=== PATIENT | male | born 1950 | race Asian ===

== ENCOUNTER 2019-03-04 16:48 | Inpatient (IN) | payer MEDICAID, OTHER ==
[~2019-03-04] VITALS: Ht 172.7 cm; Wt 43.3 kg
[2019-03-04] MEDS ORDERED: CEFEPIME 2GM/50 ML (PMX) 50 ML IVPB STA (17:03)
[2019-03-04] MEDS ORDERED: SODIUM CHLORIDE 0.9% 1L BAG IV* STA (17:03)
[2019-03-04] MEDS ORDERED: IPRATROPIUM (NEB) 0.5 MG/2.5 ML AMP INH STA (17:15)
[2019-03-04] MEDS ORDERED: METHYLPREDNISOLONE 125 MG INJ IV STA (17:15)
[2019-03-04] MEDS ORDERED: ALBUTEROL 0.5% (NEB) 2.5 MG/0.5 ML AMP INH STA (17:15)
[2019-03-04] MEDS ORDERED: ACETAMINOPHEN 500 MG TAB PO STA (17:16)
[2019-03-04] MEDS ORDERED: VANCOMYCIN 1 GM (PMX) 250 ML IVPB ONE (17:30)
[2019-03-04] MEDS ORDERED: IBUPROFEN 600 MG TAB PO ONE (17:30)
[2019-03-04] MEDS ORDERED: ALBUTEROL INH (17:44)
[2019-03-04] MEDS ORDERED: DIGOXIN PO (17:45)
[2019-03-04] MEDS ORDERED: LISINOPRIL PO (17:45)
[2019-03-04] MEDS ORDERED: ASCORBIC ACID PO (17:46)
[2019-03-04] MEDS ORDERED: SOD CHLORIDE 0.9% 1,000 ML IV STA (19:05)
[2019-03-04] MEDS ORDERED: ONDANSETRON 4 MG INJ IV PRN (21:00)
[2019-03-04] MEDS ORDERED: NACL 0.9% 3 ML SYG IV SCH (21:00)
[2019-03-04] MEDS ORDERED: ALBUTEROL/IPRATROPIUM (NEB) 3 ML AMP HHN PRN (21:00)
[2019-03-04] MEDS ORDERED: ACETAMINOPHEN 325 MG TAB PO PRN (21:00)
--- NOTE | 2019-03-04 21:28 | HP ---
Date/Time of Note Date/Time of Note DATE: 03/04/19 TIME: 21:14 Assessment/Plan VTE Prophylaxis SCD applied (from Nsg): Yes Pharmacological prophylaxis: NA/contraindicated Pharm contraindication: low risk/ambulating Lines/Catheters IV Catheter Type (from Nrsg): Saline Lock Assessment/Plan Assessment/Plan 68 yo man history of COPD on oxygen presents in COPD exacerbation #Acute exacerbation of chronic COPD - On arrival in ED was on nonrebreather; after steroids now breathing comfortably on 4L NC. - Continue prednisone 60mg daily - Will treat likely pneumonia with zosyn. Avoid fluoroquinolones until TB has been ruled out. - Continue nebulizers prn - On 2-3L oxygen at home - Case management consult to find out home medications. #Cavitary lung lesion #Weight loss #Cachexia - Possible tuberculosis. - Will get CT chest - From history it sounds like he is already on treatment. If he was at board and care not on airborne isolation then he probably has had 3 negative AFBs. And he denies cough. - In AM, should call either Dr. Gramajo's office or [facility] TB control to verify. #Anuria - Patient reports anuria for 2 days. Recently had Paul that was D/Yoav. - Will check renal and bladder US DVT: SCDs GI: None Result Diagram: 03/04/19 17103/04/19 171 HPI/ROS Admit Date/Time Admit Date/Time 04 March 2019 Hx of Present Illness Mr. Dodson is a 68 yo man with history of COPD on home oxygen who presents to the ED from board and care in acute respiratory distress. He reports feeling progressive shortness of breath and wheezing starting yesterday. He believes it is related to a new medications he started but does not know what it is or how long he has been taking it. This evening called the ambulance; he was found at his board and care in severe respiratory distress saturating mid 50%. The patient reports 20 lbs weight loss over the past 3-4 months. Appetite is variable, on days he is very hungry he tries to drink lots of Ensure. He says he was diagnosed with a bacterial infection of the lung and was placed on antibi otics for 6-9 months. He started this regimen 2 months ago. He follows Dr. Sintia Gramajo at [facility]. Typically uses 2-3L oxygen at home. Finally, he reports having Paul for 2 months due to urinary obstruction but it was removed recently. Initially he was voiding well but for 2 days he reports no urine output despite drinking plenty of fluids. He denies dysuria or suprapubic pain. In the ED he was febrile to 101.1, P 79, in respiratory distress. Placed on nonrebreather. Labs notable for lactate 2.6, otherwise unremarkable. CXR shows chronic lung disease throughout and L upper cavitary lesion. ROS he denies fever, chills, night sweats, dizziness, vertigo, dysphagia, chest pain/pressure/palpitations, cough, abdominal pain, diarrhea, constipation, dysuria, hematuria, flank pain, melena PMH/Family/Social Past Medical History COPD on 2-3L home oxygen Medications Current Medications IV Flush (NS 3 ml) 3 ml PER PROTOCOL IV ; Start 03/04/19 at 21:00 Ondansetron HCl (Zofran Inj) 4 mg Q6H PRN IV NAUSEA/VOMITING; Start 03/04/19 at 21:00 Acetaminophen (Tylenol Tab) 650 mg Q6H PRN PO .PAIN 1-3 OR TEMP; Start 03/04/19 at 21:00 Prednisone (Prednisone) 60 mg DAILY PO ; Start 03/05/19 at 09:00 Albuterol/ Ipratropium (Duoneb) 3 ml Q3H RESP THERAPY PRN HHN SHORTNESS OF BREATH; Start 03/04/19 at 21:00 Coded Allergies: No Known Allergy (Unverified , 03/04/19) Past Surgical History Past Surgical Hx: no surgical history Social History Born in [facility], immigrated to [place] at age 31. 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 Now lives in [place] [facility]. Alcohol Use: none Smoking Status: Former smoker (Quit smoking 1 year ago) Drug Use: none Exam/Review of Systems Vital Signs Vitals Vital Signs Date Temp Pulse Resp B/P (MAP) Pulse Ox O2 O2 Flow FiO2 Time Delivery Rate 03/04/19 99.0 79 16 90/57 (68) 99 Nasal 20:10 Cannula 03/04/19 4.0 17:40 Exam Exam Gen: Cachectic man well appearing no acute distress Eyes: PERRL, no icterus HEENT: Moist mucous membranes, clear oropharynx Neck:Supple, no lymphadenopathy Card: Regular rate and rhythm, no murmurs Pulm: Clear to auscultation bilaterally, no wheezing Abd: Soft, nontender, nondistended, scaphoid. No hepatosplenomegaly. Ext: No cyanosis/clubbing/edema, good peripheral pulses. Skin: warm, dry, well perfused. MAXINE WOODARD MD Mar 04, 2019 21:24
--- NOTE | 2019-03-04 22:37 | ERD ---
ER Documentation Chief Complaint Chief Complaint sob worsen today HPI This is a 68-year-old male that [facility]. The patient is a known history of COPD. The patient indicates that he has had significant difficulty breathing which is significantly worsened over the past 24 hours. When EMS arrived they indicated the patient was severely hypoxic satting at roughly 60%. To place the patient on low flow supplemental oxygen. The patient was hypotensive. The patient denies any fever shaking or chills. He states he had a nonproductive cough. The patient denies any recent hospitalizations. The patient denies any chest pain. He denies any nausea vomiting or abdominal pain. ROS All systems reviewed and are negative except as per history of present illness. Medications Home Meds Reported Medications [Ascorbic Acid] No Conflict Check, 1 TAB PO 03/04/19 [Lisinopril] No Conflict Check, 1 TAB PO 03/04/19 [Digoxin] No Conflict Check, 1 TAB PO 03/04/19 [Albuterol] No Conflict Check, INH NEEDED 03/04/19 Allergies Allergies: Coded Allergies: No Known Allergy (Unverified , 03/04/19) PMhx/Soc History of Surgery: No Anesthesia Reaction: No Hx Neurological Disorder: No Hx Respiratory Disorders: No Hx Cardiac Disorders: Yes (htn, afib) Hx Psychiatric Problems: No Hx Miscellaneous Medical Probl: No Hx Alcohol Use: No Hx Substance Use: No Hx Tobacco Use: No Smoking Status: Former smoker (Quit smoking 1 year ago) Physical Exam Vitals Vital Signs Date Temp Pulse Resp B/P (MAP) Pulse Ox O2 O2 Flow FiO2 Time Delivery Rate 03/04/19 76 16 100/62 99 Nasal 22:11 (75) Cannula 03/04/19 99.0 79 16 90/57 (68) 99 Nasal 20:10 Cannula 03/04/19 101.1 79 16 82/54 (63) 100 Nasal 19:06 Cannula 03/04/19 85 18 98/73 (81) 100 18:07 03/04/19 97 19 94/59 (71) 100 17:45 03/04/19 88 20 96 Nasal 4.0 17:40 Cannula 03/04/19 101.1 17:36 03/04/19 101.1 17:36 03/04/19 Nasal 4 17:25 Cannula 03/04/19 101.7 94 26 86/57 (93) 95 16:50 Physical Exam Constitutional:Well-developed. Cachectic. Patient in severe respiratory distress. HEENT:Normocephalic. Atraumatic.Pupils were equal round reactive to light. Moist mucous membranes.No tonsillar exudates. Neck: No nuchal rigidity. No lymphadenopathy. No posterior cervical spine tenderness or step-offs. Respiratory: Patient using accessory muscles of respiration. Unable to speak more than 2 words at a time before becoming short of breath. Diminished breath sounds heard on the left upper and lower lung base. Slight wheeze on inspiration throughout the right hemithorax. Cardiovascular: Regular rate regular rhythm.No murmurs. No rubs were appreciated.S1, S2 normal. Distal pulses are palpable 2+ bilaterally. GI: Abdomen was soft. Nontender. Non Distended. No pulsatile abdominal masses or bruits. No rebound. No guarding. Bowel sounds were present and normal. Muscle skeletal: Muscle atrophy of the upper and lower extremities. Skin: No petechia, no purpura. No lesions on the palms or the soles of the feet. No maculopapular rash. NEURO: Patient was alert, awake, orientated x3.No facial droop. Gait not observed as patient was in severe respiratory distress. Result Diagram: 03/04/19 1712 03/04/19 1712 Results 24 hrs Laboratory Tests Test 03/04/19 17:12 03/04/19 17:15 03/04/19 19:30 03/04/19 21:50 White Blood Count 7.7 10^3/ul Red Blood Count 3.01 10^6/ul Hemoglobin 8.7 g/dl Hematocrit 27.6 % Mean Corpuscular 91.7 fl Volume Mean Corpuscular 28.9 pg Hemoglobin Mean Corpuscular 31.5 g/dl Hemoglobin Concent Red Cell Distribution 14.5 % Width Platelet Count 242 10^3/UL Mean Platelet Volume 9.1 fl Immature Granulocytes 0.500 % % Neutrophils % 80.7 % Lymphocytes % 11.4 % Monocytes % 7.1 % Eosinophils % 0.0 % Basophils % 0.3 % Nucleated Red Blood 0.0 /100WBC Cells % Immature Granulocytes 0.040 10^3/ul # Neutrophils # 6.2 10^3/ul Lymphocytes # 0.9 10^3/ul Monocytes # 0.5 10^3/ul Eosinophils # 0.0 10^3/ul Basophils # 0.0 10^3/ul Nucleated Red Blood 0.0 10^3/ul Cells # Prothrombin Time 23.3 Sec Prothrombin Time Ratio 1.8 INR International 2.06 Normalized Ratio Activated 50.7 Sec Partial Thromboplast Time Sodium Level 138 mmol/L Potassium Level 4.0 mmol/L Chloride Level 106 mmol/L Carbon Dioxide Level 25 mmol/L Anion Gap 7 Blood Urea Nitrogen 21 mg/dl Creatinine 0.45 mg/dl Est Glomerular Filtrat > 60 mL/min Rate mL/min Glucose Level 100 mg/dl Calcium Level 7.1 mg/dl Total Bilirubin 0.4 mg/dl Direct Bilirubin 0.00 mg/dl Indirect Bilirubin 0.4 mg/dl Aspartate Amino 27 IU/L Transf (AST/SGOT) Alanine 23 IU/L Aminotransferase (ALT/ SGPT) Alkaline Phosphatase 115 IU/L Troponin I < 0.012 ng/ml B-Type Natriuretic 1190 PG/ML Peptide Total Protein 5.8 g/dl Albumin 2.5 g/dl Globulin 3.30 g/dl Albumin/Globulin Ratio 0.75 Amylase Level 117 U/L Lipase 18 U/L POC Venous Lactate 2.6 mmol/L Lactic Acid Level 1.5 mmol/L 1.6 mmol/L Current Medications Medications Dose Sig/Edgar Start Time Status Last (Trade) Ordered Route PRN Stop Time Admin Dose Reason Admin Sodium 1,170 ml BOLUS OVER 2 03/04/19 DC 03/04/19 Chloride HOURS STAT 17:03 03/04/19 17:39 (NS) IV* 17:05 Cefepime HCl 50 ml @ ONCE STAT 03/04/19 DC 03/04/19 100 mls/hr IVPB 17:03 03/04/19 18:03 17:35 Vancomycin 250 ml @ ONCE ONCE 03/04/19 DC 03/04/19 HCl 125 mls/hr IVPB 17:30 03/04/19 18:38 19:29 Albuterol 10 mg ONCE STAT 03/04/19 DC 03/04/19 (Proventil INH 17:15 03/04/19 17:40 0.5% (Neb)) 17:16 Ipratropium 1 mg ONCE STAT 03/04/19 DC 03/04/19 Norco INH 17:15 03/04/19 17:40 (Atrovent 17:16 0.02% (Neb)) 125 mg ONCE STAT 03/04/19 DC 03/04/19 Methylprednis IV 17:15 03/04/19 17:36 olone Sodium 17:16 Succinate (Solu-Medrol) Ibuprofen 600 mg ONCE ONCE 03/04/19 DC 03/04/19 (Motrin) PO 17:30 03/04/19 17:36 17:31 1,000 mg ONCE STAT 03/04/19 DC 03/04/19 Acetaminophen PO 17:16 03/04/19 17:36 (Tylenol 17:17 Tab) Sodium 1,000 ml @ Q1H STAT 03/04/19 DC 03/04/19 Chloride 1,000 mls/hr IV 19:05 03/04/19 19:19 20:04 IV Flush 3 ml PER 03/04/19 (NS 3 ml) PROTOCOL IV 21:00 Ondansetron 4 mg Q6H PRN 03/04/19 HCl (Zofran IV 21:00 Inj) NAUSEA/VOMITI NG 650 mg Q6H PRN 03/04/19 Acetaminophen PO .PAIN 1-3 21:00 (Tylenol OR TEMP Tab) Prednisone 60 mg DAILY PO 03/05/19 (Prednisone) 09:00 Albuterol/ 3 ml Q3H RESP 03/04/19 Ipratropium THERAPY PRN 21:00 (Duoneb) HHN SHORTNESS OF BREATH Piperacillin 100 ml @ Q6 IVPB 03/05/19 Sod/ 200 mls/hr 00:00 Tazobactam Sod Procedures/MDM The patient presented to the emergency department with shortness of breath. My differential diagnosis included but was not limited to upper airway obstruction, CHF, pulmonary embolism, cardiac ischemia, pneumonia, pneumothorax, anemia, drug overdose, pulmonary edema, COPD or asthma. The patient was immediately placed on high flow supplemental oxygen through nonrebreather as when the patient arrived he was hypoxic at roughly 60%. A bedside chest radiograph was immediately obtained and reviewed by myself and there is no evidence of pneumothorax. 1 view chest radiograph on reviewed by myself the radiologist indicate the following: Marked architectural distortion of the bilateral lung apices with bullous changes and possible cavitation within the left upper lung. Sequelae of old infection is considered most likely. Coarse interstitial markings are seen t hroughout the remainder of the lungs. A follow-up CT chest without contrast may be obtained for further characterization given the lack of prior imaging. Thoracic aortic atherosclerosis. 12 Lead EKG tracing ordered and reviewed by myself showed: Normal sinus rhythm of 95 bpm and no arrhythmia. MD interval normal. QRS duration normal. There is RSR prime pattern in lead V1 V2 consistent with an incomplete right bundle branch block. No ST segment elevation No ST segment depression. No changes consistent with acute ischemia. When the patient initially arrived he was febrile and did meet Sirs criteria. Patient's infectious symptoms have not stabilized and the patient is at risk of rapid decompensation. The patient will be admitted for careful hydration, antibiotic therapy, and infectious source control. Severe Sepsis Assessment: Infectious Source: Unknown source End organ damage indicated by: Lactate > 2.0 mmol/L Hypotension( SBP < 90 or >40 mmHG drop or MAP < 65) Acute Resp Failure (sat < 92% w/o oxygen) Severe Sepsis Managment: Blood Cultures X 2 before broad spectrum antibiotics initiated within 3 hours of recognition. 30 ml/kg NS bolus Completed Initial Lactate: 2.6 Repeat Lactate 1.5 I considered further perfusion assessment with CVP measurement, SCVO2, bedside ultrasound volume assessment, passive leg raise, trial of further fluid bolus. And preceded with IV fluids. The patient's BNP was elevated 1190 however his clinical picture appeared to be more result of a COPD exacerbation. He had significant improvement after he received a continuous nebulizer treatment and IV steroids. He was now satting at 94% on 2 L nasal cannula. The patient was hypotensive but I did feel this was exacerbated by his severe cachexia and closer to his baseline. His blood pressure did improve with IV fluid resuscitation. The patient will be admitted in serious condition under the care of Dr. Pond. He will go to the telemetry service. CT scan of the patient's chest will be obtained. He did have a cavitation in his left lung that could be result of possible tuberculosis and will be followed up by the admitting physician. Critical Care: Time: 80 minutes Treatments/Evaluations: Close monitoring and treatment of unstable vital signs, cardiorespiratory, and neurologic status, while maintaining tight balance of fluid, respiratory, and cardiac interventions. Time does not include performing any of the above billable procedures. Departure Diagnosis: Primary Impression: COPD (chronic obstructive pulmonary disease) COPD type: emphysema Emphysema type: unspecified Qualified Codes: J43.9 - Emphysema, unspecified Additional Impression: Sepsis Sepsis type: sepsis due to unspecified organism Qualified Codes: A41.9 - Sepsis, unspecified organism Condition: Serious ALE FUENTES MD Mar 04, 2019 22:37
[2019-03-04 23:40] VITALS: Ht 172.7 cm; Wt 43.3 kg
[2019-03-05] VITALS (11 sets, daily range): BP systolic 82–125; BP diastolic 53–67; PULSE 47–63; RESP 15–18
[2019-03-05] MEDS: PIPER-TAZO 3.375 GM IV (PMX) 100 ML IVPB SCH ×5 (01:20→23:46)
[2019-03-05] MEDS: predniSONE 20 MG TAB PO SCH (10:10)
--- NOTE | 2019-03-05 15:40 | CONS ---
DATE OF ADMISSION: 03/04/2019 DATE OF CONSULTATION: TYPE OF CONSULTATION: Pulmonary. REASON FOR CONSULTATION: Shortness of breath, abnormal chest CT. Thank you, Dr. Marquis, for this consultation. 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 The patient is a poor historian, unable to give me further details. PAST MEDICAL HISTORY: As above. SYSTEMS REVIEW: A 12-point review of systems was negative other than that mentioned above. PHYSICAL EXAMINATION: GENERAL: Thin, chronically ill-appearing gentleman, appears comfortable at rest, in no acute distres s. VITAL SIGNS: Currently afebrile, pulse is 60, blood pressure 95/58, O2 saturation 90% on 2-liter zina al cannula. NECK: Supple. No JVD or lymphadenopathy. CARDIAC: S1, S2. No added sounds or murmurs. CHEST: Diminished air entry bilaterally. No rales or wheezes. LABORATORIES: White count 5.2, hemoglobin 10.2, platelets 267. BUN 27, creatinine 0.5. Lactic acid now 1.6. INR 1.71. DIAGNOSTIC DATA: CT chest shows cavitating disease, thick walled cavities with central mass, severe emphysematous changes. 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 I recommend: 1. 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 2. Continue supplemental O2 and bronchodilators. 3. Steroid taper. 4. DVT and GI prophylaxis. Dictated By: KHADAR LOPEZ MD SV/NTS Conf#: [id number] DID#: [id number] CC: ISRAEL MARQUIS MD; MAXINE WOODARD MD;*End*
--- NOTE | 2019-03-05 15:54 | PN ---
Date/Time of Note Date/Time of Note DATE: 03/05/19 TIME: 15:43 Assessment/Plan VTE Prophylaxis SCD applied (from Nsg): Yes Pharmacological prophylaxis: NA/contraindicated Pharm contraindication: low risk/ambulating Lines/Catheters IV Catheter Type (from Nrsg): Saline Lock Assessment/Plan Hospital Course 68-year-old male who presented to the emergency room from [facility] with respiratory distress and difficulty breathing over the last 24 hours and was found to be hypoxic. He was admitted and managed as follows: 1. Acute on chronic respiratory failure likely secondary to #2 2. Acute COPD exacerbation: Improved -Chest CT showing extensive emphysema as well as bronchiectasis -maintained on inhaled bronchodilators, abx , steroids 3. Bilateral large cavitary lesions, extensive in both lungs. -CT was reviewed with the strike operations officer, per pulmonary, these findings are likely chronic. Likely sequelae of prior tuberculosis infection, acute infection while unable to be ruled out is very unlikely. -Pulmonary does not recommended needle biopsy at this time, patient is very high risk for complete pulmonary collapse as he has very little lung left and what is left of his lungs is severely diseased with emphysema 4. Malnutrition/cachexia -dietary consult 5. Chronic hypochromic anemia: Stable 6. Mild hypotension: Improved, chronic? Stable 7. Asymptomatic bradycardia: Stable, monitor Plan: -Pulmonary recommends conservative management at this time and close outpatient follow-up with pulmonology. -No further intervention will be: TB rule out versus lung biopsy is advised at this time -Patient has a poor long-term prognosis, but the recommendation is to treat his COPD exacerbation and continue serial imaging over time for monitoring of the other findings. This is likely ongoing as findings are chronic. -Plan of care discussed with patient, patient is in agreement, continue patient care at this time will plan for possible discharge tomorrow -dietary consult, SW consult, case mgt consult . Result Diagram: 03/05/19 0643 03/05/19 0642 Results 24hrs Laboratory Tests Test 03/04/19 17:12 03/04/19 17:15 03/04/19 19:30 03/04/19 21:50 White Blood Count 7.7 Red Blood Count 3.01 L Hemoglobin 8.7 L Hematocrit 27.6 L Mean Corpuscular Volume 91.7 Mean Corpuscular 28.9 L Hemoglobin Mean Corpuscular 31.5 L Hemoglobin Concent Red Cell Distribution 14.5 Width Platelet Count 242 Mean Platelet Volume 9.1 Immature Granulocytes % 0.500 H Neutrophils % 80.7 H Lymphocytes % 11.4 L Monocytes % 7.1 Eosinophils % 0.0 Basophils % 0.3 Nucleated Red Blood 0.0 Cells % Immature Granulocytes # 0.040 H Neutrophils # 6.2 Lymphocytes # 0.9 Monocytes # 0.5 Eosinophils # 0.0 Basophils # 0.0 Nucleated Red Blood 0.0 Cells # Prothrombin Time 23.3 H Prothrombin Time Ratio 1.8 INR International 2.06 Normalized Ratio Activated 50.7 H Partial Thromboplast Time Sodium Level 138 Potassium Level 4.0 Chloride Level 106 Carbon Dioxide Level 25 Anion Gap 7 Blood Urea Nitrogen 21 H Creatinine 0.45 L Est Glomerular Filtrat > 60 Rate mL/min Glucose Level 100 Calcium Level 7.1 L Total Bilirubin 0.4 Direct Bilirubin 0.00 Indirect Bilirubin 0.4 Aspartate Amino 27 Transf (AST/SGOT) Alanine 23 Aminotransferase (ALT/SG PT) Alkaline Phosphatase 115 Troponin I < 0.012 B-Type Natriuretic 1190 H Peptide Total Protein 5.8 L Albumin 2.5 L Globulin 3.30 H Albumin/Globulin Ratio 0.75 Amylase Level 117 Lipase 18 L POC Venous Lactate 2.6 *H Lactic Acid Level 1.5 1.6 Test 03/05/19 06:42 03/05/19 06:43 03/05/19 11:11 Sodium Level 138 Potassium Level 4.3 Chloride Level 106 Carbon Dioxide Level 25 Anion Gap 7 Blood Urea Nitrogen 27 H Creatinine 0.50 L Est Glomerular Filtrat > 60 Rate mL/min Glucose Level 137 Calcium Level 8.3 L Phosphorus Level 4.7 Magnesium Level 1.8 Total Bilirubin 0.3 Direct Bilirubin 0.00 Indirect Bilirubin 0.3 Aspartate Amino 67 #H Transf (AST/SGOT) Alanine 12 L Aminotransferase (ALT/SG PT) Alkaline Phosphatase 129 H Total Protein 7.0 # Albumin 2.9 L Globulin 4.10 H Albumin/Globulin Ratio 0.70 Thyroid Stimulating 2.390 Hormone (TSH) White Blood Count 5.2 # Red Blood Count 3.56 L Hemoglobin 10.2 L Hematocrit 32.9 L Mean Corpuscular Volume 92.4 Mean Corpuscular 28.7 L Hemoglobin Mean Corpuscular 31.0 L Hemoglobin Concent Red Cell Distribution 14.6 H Width Platelet Count 267 Mean Platelet Volume 9.5 Immature Granulocytes % 0.600 H Neutrophils % 90.0 H Lymphocytes % 7.1 L Monocytes % 2.1 Eosinophils % 0.0 Basophils % 0.2 Nucleated Red Blood 0.0 Cells % Immature Granulocytes # 0.030 Neutrophils # 4.7 Lymphocytes # 0.4 L Monocytes # 0.1 L Eosinophils # 0.0 Basophils # 0.0 Nucleated Red Blood 0.0 Cells # Hemoglobin A1c 5.8 Prothrombin Time 15.0 #H Prothrombin Time Ratio 1.2 INR International 1.17 Normalized Ratio Subjective 24 Hr Interval Summary Free Text/Dictation no new complaints, feels much better from a pulmonary standpoint, states he has home O2 at 2L. No immediate family here, all relatives in [place] Exam/Review of Systems Exam Vitals Vital Signs Date Temp Pulse Resp B/P (MAP) Pulse Ox O2 O2 Flow FiO2 Time Delivery Rate 03/05/19 53 16 114/62 99 15:37 (79) 03/05/19 97.9 07:39 03/05/19 2.0 03:34 03/05/19 Nasal 01:15 Cannula Intake and Output 03/04/19 03/04/19 03/05/19 1515:00 23:00 07:00 IntakeIntake Total 520 ml OutputOutput Total 200 ml BalanceBalance 320 ml Constitutional: alert, oriented, frail, other (cachectic ) Psych: nl mood/affect Head: normocephalic, atraumatic Eyes: PERRL ENMT: mucosa pink and moist Neck: supple Respiratory: diminished breath sounds (+++); No crackles/rales, No intercostal retraction, No labored breathing, No wheezing Cardiovascular: regular rate and rhythm; No murmurs/extra sounds Gastrointestinal: soft, non-tender, bowel sounds Extremities: other (chronic msc wasting ); No edema Neurological: nl mental status, nl speech; No confused, No focal weakness Results Results 24hrs Laboratory Tests Test 03/04/19 17:12 03/04/19 17:15 03/04/19 19:30 03/04/19 21:50 White Blood Count 7.7 Red Blood Count 3.01 L Hemoglobin 8.7 L Hematocrit 27.6 L Mean Corpuscular Volume 91.7 Mean Corpuscular 28.9 L Hemoglobin Mean Corpuscular 31.5 L Hemoglobin Concent Red Cell Distribution 14.5 Width Platelet Count 242 Mean Platelet Volume 9.1 Immature Granulocytes % 0.500 H Neutrophils % 80.7 H Lymphocytes % 11.4 L Monocytes % 7.1 Eosinophils % 0.0 Basophils % 0.3 Nucleated Red Blood 0.0 Cells % Immature Granulocytes # 0.040 H Neutrophils # 6.2 Lymphocytes # 0.9 Monocytes # 0.5 Eosinophils # 0.0 Basophils # 0.0 Nucleated Red Blood 0.0 Cells # Prothrombin Time 23.3 H Prothrombin Time Ratio 1.8 INR International 2.06 Normalized Ratio Activated 50.7 H Partial Thromboplast Time Sodium Level 138 Potassium Level 4.0 Chloride Level 106 Carbon Dioxide Level 25 Anion Gap 7 Blood Urea Nitrogen 21 H Creatinine 0.45 L Est Glomerular Filtrat > 60 Rate mL/min Glucose Level 100 Calcium Level 7.1 L Total Bilirubin 0.4 Direct Bilirubin 0.00 Indirect Bilirubin 0.4 Aspartate Amino 27 Transf (AST/SGOT) Alanine 23 Aminotransferase (ALT/SG PT) Alkaline Phosphatase 115 Troponin I < 0.012 B-Type Natriuretic 1190 H Peptide Total Protein 5.8 L Albumin 2.5 L Globulin 3.30 H Albumin/Globulin Ratio 0.75 Amylase Level 117 Lipase 18 L POC Venous Lactate 2.6 *H Lactic Acid Level 1.5 1.6 Test 03/05/19 06:42 03/05/19 06:43 03/05/19 11:11 Sodium Level 138 Potassium Level 4.3 Chloride Level 106 Carbon Dioxide Level 25 Anion Gap 7 Blood Urea Nitrogen 27 H Creatinine 0.50 L Est Glomerular Filtrat > 60 Rate mL/min Glucose Level 137 Calcium Level 8.3 L Phosphorus Level 4.7 Magnesium Level 1.8 Total Bilirubin 0.3 Direct Bilirubin 0.00 Indirect Bilirubin 0.3 Aspartate Amino 67 #H Transf (AST/SGOT) Alanine 12 L Aminotransferase (ALT/SG PT) Alkaline Phosphatase 129 H Total Protein 7.0 # Albumin 2.9 L Globulin 4.10 H Albumin/Globulin Ratio 0.70 Thyroid Stimulating 2.390 Hormone (TSH) White Blood Count 5.2 # Red Blood Count 3.56 L Hemoglobin 10.2 L Hematocrit 32.9 L Mean Corpuscular Volume 92.4 Mean Corpuscular 28.7 L Hemoglobin Mean Corpuscular 31.0 L Hemoglobin Concent Red Cell Distribution 14.6 H Width Platelet Count 267 Mean Platelet Volume 9.5 Immature Granulocytes % 0.600 H Neutrophils % 90.0 H Lymphocytes % 7.1 L Monocytes % 2.1 Eosinophils % 0.0 Basophils % 0.2 Nucleated Red Blood 0.0 Cells % Immature Granulocytes # 0.030 Neutrophils # 4.7 Lymphocytes # 0.4 L Monocytes # 0.1 L Eosinophils # 0.0 Basophils # 0.0 Nucleated Red Blood 0.0 Cells # Hemoglobin A1c 5.8 Prothrombin Time 15.0 #H Prothrombin Time Ratio 1.2 INR International 1.17 Normalized Ratio Imaging Imaging PROCEDURE: CT Chest without contrast. CLINICAL INDICATION: Upper lobe cavitary lesion TECHNIQUE: CT scan of the chest without contrast was performed on a multidetector high-resolution CT scanner. Coronal and sagittal reformatted images were obtained from the axial source images. The total exam CTDI equals 3.1 mGy and the total exam DLP equals 123.2 mGy-cm. 1 or more of the following dose reduction techniques were utilized: - Automated exposure control - Adjustment of the mA and/or kV according to patient size - Use of iterative reconstruction technique DICOM images are available. COMPARISON: March 04, 2019 FINDINGS: The trachea is midline. Thyroid gland is unremarkable. No same axillary lymphadenopathy. Several mediastinal lymph nodes are noted. Difficult to assess for hilar lymphadenopathy without IV contrast. The unenhanced aorta demonstrates minimal atherosclerotic calcifications. Pulmonary trunk is normal size. Heart size is within limits. Severe bilateral emphysematous changes are noted throughout both lungs. Large cavitary mass is noted within the left upper lobe, with thickened rodgers and irregular nodular borders, measuring 8.7 cm. There is also a large right upper lobe cavitary mass measuring up to 8.2 cm with thickened rodgers and irregular borders. There is an additional cavitary lesion measuring 1.6 cm within the right upper lobe, with architectural distortion and with adjacent interstitial thickening. Right middle lobe cystic and traction bronchiectasis. Numerous pulmonary nodules are noted throughout both lungs predominately within the lung bases. Additional cavitary lesion is identified within the superior segment of the left lower lobe measuring up to 4.5 cm with irregular thickened borders. The visualized upper abdominal organs appears to be within normal limits. The visualized osseous structures demonstrates multilevel degenerative disease of the thoracic spine. Chronic compression deformity of T8, T9 and T12. IMPRESSION: 1. Large cavitary mass within the left upper lobe with thickened rodgers and irregular nodular borders measuring 8.7 cm and large right upper lobe cavitary mass measuring up to 8.2 cm. Additional 4.5 cm located within the superior segment of the left lower lobe measure up to 4.5 cm. Suspect sequela of underlying infection such as tuberculosis. Correlate with clinical findings and history. 2. Severe bilateral emphysematous changes and 1.6 cm cavitary lesion within right upper lobe with architectural distortion and adjacent interstitial thickening. There is right middle lobe cystic and traction bronchiectasis. Findings are likely sequela of scarring and pleural of prior infection such as tuberculosis. 3. Numerous pulmonary nodules scattered throughout both lungs, predominately within the lung bases. Findings are probably related to history of prior infection/TB. 4. Underlying malignancy is not excluded. 5. 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 RPTAT: AARR Physician Yared Date Time Electronically viewed and signed by Physician Yared on 03/04/2019 22:43 JL/ CC: MAXINE WOODARD MD [id number] PROCEDURE: Retroperitoneal US. CLINICAL INDICATION: Hematuria TECHNIQUE: Multiple sonographic images of the kidneys and retroperitoneum were obtained. The images were reviewed on a PACS workstation. COMPARISON: No prior studies are available for comparison. FINDINGS: The kidneys are normal in size, contour, cortical thickness and cortical echogenicity. The right kidney measures 10.7 cm. The left kidney measures 10.8 cm. There are calcified stones in the upper pole of the right kidney, measuring up to 17 mm. There is no evidence for hydronephrosis. There is a moderate amount of layering debris within the urinary bladder. There are possible bladder stones. The prostate measures 2.7 x 2.2 cm. RPTAT: AA IMPRESSION: Right nephrolithiasis. No evidence of hydronephrosis. Moderate amount of layering debris and possible stones within the urinary bladder. .Dominick Rain MD, MD Date Time Electronically viewed and signed by .Dominick Rain MD, MD on 03/05/2019 08:02 .S/ CC: MAXINE WOODARD MD [phone] Medications Medication Current Medications IV Flush (NS 3 ml) 3 ml PER PROTOCOL IV ; Start 03/04/19 at 21:00 Ondansetron HCl (Zofran Inj) 4 mg Q6H PRN IV NAUSEA/VOMITING; Start 03/04/19 at 21:00 Acetaminophen (Tylenol Tab) 650 mg Q6H PRN PO .PAIN 1-3 OR TEMP; Start 03/04/19 at 21:00 Prednisone (Prednisone) 60 mg DAILY PO Last administered on 03/05/19at 10:10; Admin Dose 60 MG; Start 03/05/19 at 09:00 Albuterol/ Ipratropium (Duoneb) 3 ml Q3H RESP THERAPY PRN HHN SHORTNESS OF BREATH; Start 03/04/19 at 21:00 Piperacillin Sod/ Tazobactam Sod 100 ml @ 200 mls/hr Q6 IVPB Last administered on 03/05/19at 12:57; Admin Dose 200 MLS/HR; Start 03/05/19 at 00:00 ISRAEL MARQUIS Mar 05, 2019 15:54
--- NOTE | 2019-03-05 17:25 | RADRPT ---
Echocardiogram Report Patient Name: SCOTT HERRERAPatient ID: [id number] : 1950 (68y 8m)Study Date: 03/05/2019 1:48:58 PM Gender: MAccession #: [id number] Tech: Matt Root [facility] Location: [address] Ref.Physician: ISRAEL MARQUIS Height(Cm): BSA: Weight(Kg): Quality: AdequateOrder Physician: ISRAEL MARQUIS Account #: Procedures: Echocardiographic Report: Transthoracic echocardiogram with complete 2D, M-Mode, and doppler examination. Indications: R/o Congestive Heart Failure. Measurements: 2D/M Mode Doppler Measurement Value Normal Range Measurement Value Normal Range LVIDd 2D 3.7 [ 4.2 - 5.8 ] cm AV Peak Luis Manuel 0.7 [ 100.0 - 170.0 ] cm/sec LVIDs 2D 2.7 [ 2.5 - 4.0 ] cm AV Peak PG 2.0 [ 2.0 - 9.0 ] mmHg LVPWd 2D 1.0 [ 0.6 - 1.0 ] cm LVOT Peak Luis Manuel 0.6 [ 70.0 - 110.0 ] cm/sec IVSd 2D 1.0 [ 0.6 - 1.0 ] cm LVOT Peak PG 1.0 [ 2.0 - 6.0 ] mmHg AoR Diam 2D 3.2 [ 2.6 - 3.4 ] cm MV E Peak Luis Manuel 0.5 [ 60.0 - 130.0 ] cm/sec EDV 2D 58.1 [ 62.0 - 150.0 ] ml MV A Peak Luis Manuel 0.7 [ 100.0 - 120.0 ] cm/sec ESV 2D 26.5 [ 21.0 - 61.0 ] ml MV E/A 0.6 [ 0.8 - 1.5 ] ratio EF 2D 54.4 [ 52.0 - 72.0 ] percent MV Decel Time 218 [ 104 - 258 ] msec LA Dimen 2D 2.5 [ 3.0 - 4.0 ] cm Lat E` Luis Manuel 0.1 [ 10.0 - 15.0 ] cm/sec Lateral E/E` 5.8 [ 1.0 - 2.0 ] ratio MV E/A 0.6 [ 0.8 - 1.5 ] ratio TR Peak Luis Manuel 2.8 [ 100.0 - 280.0 ] cm/sec TR Peak PG 32.0 mmHg RVSP 42.0 [ 10.0 - 36.0 ] mmHg Findings: Left Ventricle: Normal left ventricular systolic function. Normal left ventricular cavity size. Normal left ventricular wall thickness. Ejection fraction is visually estimated at 60 %. Tissue Doppler/Mitral Doppler indices are consistent with impaired relaxation (Stage I diastolic dysfunction). Right Ventricle: Normal right ventricular size. Normal right ventricular systolic function. Left Atrium: The left atrium is normal in size. Right Atrium: Chiari network visualized in right atrium (normal variant). Mitral Valve: Mild mitral leaflet calcification. Mild mitral annular calcification. Aortic Valve: No significant aortic stenosis or insufficiency. Aortic cusps appear mildly calcified. Tricuspid Valve: Normal appearance of the tricuspid valve. The estimated Peak RVSP is 43 mmHg. There is mild tricuspid regurgitation. Pericardium: Normal pericardium with no significant pericardial effusion. Left pleural effusion seen. Aorta: Normal aortic root. IVC: Normal size and normal respiratory collapse consistent with normal right atrial pressure. Conclusions: Normal left ventricular systolic function. Normal left ventricular cavity size. Normal left ventricular wall thickness. Ejection fraction is visually estimated at 60 %. Tissue Doppler/Mitral Doppler indices are consistent with impaired relaxation (Stage I diastolic dysfunction). Mild mitral leaflet calcification. Mild mitral annular calcification. No significant aortic stenosis or insufficiency. Aortic cusps appear mildly calcified. Normal appearance of the tricuspid valve. The estimated Peak RVSP is 43 mmHg. There is mild tricuspid regurgitation. Electronically Signed By: Hussein Plata 2019-03-05 17:24:57 PDT
[2019-03-06] VITALS (11 sets, daily range): BP systolic 101–138; BP diastolic 62–73; PULSE 44–90; RESP 18–20
[2019-03-06] MEDS ORDERED: MAGNESIUM HYDROXIDE 30ML CUP PO PRN (03:00)
[2019-03-06] MEDS: PIPER-TAZO 3.375 GM IV (PMX) 100 ML IVPB SCH ×4 (05:43→23:57)
[2019-03-06] MEDS: predniSONE 20 MG TAB PO SCH (08:31)
--- NOTE | 2019-03-06 12:47 | CONS ---
Consult Date/Type/Reason Admit Date/Time Mar 04, 2019 at 20:59 Initial Consult Date Type of Consult Pulmonary Date/Time of Note DATE: 03/06/19 TIME: 12:45 Subjective Patient comfortable no respiratory distress. Objective Vital Signs Date Temp Pulse Resp B/P (MAP) Pulse Ox O2 O2 Flow FiO2 Time Delivery Rate 03/06/19 90 12:44 03/06/19 97.5 20 101/64 98 Nasal 11:23 (76) Cannula 03/06/19 2.0 07:28 Intake and Output 03/05/19 03/05/19 03/06/19 1515:00 23:00 07:00 IntakeIntake Total 900 ml 650 ml OutputOutput Total 425 ml 500 ml BalanceBalance 475 ml 150 ml Exam GENERAL: Thin cachectic gentleman VITAL SIGNS: per chart NECK: Supple. No JVD or lymphadenopathy. CARDIAC EXAM: S1, S2. No added sounds or murmurs. CHEST: clear bilaterally, No added sounds, rales or wheezes ABDOMEN: Soft, nontender. No guarding or rebound. EXTREMITIES: No cyanosis, clubbing or edema. NEUROLOGIC: Generalized weakness. No focal deficits. Results/Medications Result Diagram: 03/06/19 0638 03/06/19 0638 Results 24 hrs Laboratory Tests Test 03/05/19 23:20 03/06/19 06:38 Urine Color YELLOW Urine Clarity SLIGHTLY CLOUDY A Urine pH 5.0 Urine Specific Lares 1.024 Urine Ketones NEGATIVE Urine Nitrite NEGATIVE Urine Bilirubin NEGATIVE Urine Urobilinogen NEGATIVE Urine Leukocyte Esterase 1+ H Urine Microscopic RBC 84 H Urine Microscopic WBC 20 H Urine Hemoglobin 3+ H Urine Glucose NEGATIVE Urine Total Protein NEGATIVE White Blood Count 10.4 # Red Blood Count 3.42 L Hemoglobin 10.1 L Hematocrit 31.7 L Mean Corpuscular Volume 92.7 Mean Corpuscular Hemoglobin 29.5 Mean Corpuscular Hemoglobin Concent 31.9 L Red Cell Distribution Width 14.4 Platelet Count 311 Mean Platelet Volume 9.4 Immature Granulocytes % 0.600 H Neutrophils % 85.4 H Lymphocytes % 5.1 L Monocytes % 8.8 Eosinophils % 0.0 Basophils % 0.1 Nucleated Red Blood Cells % 0.0 Immature Granulocytes # 0.060 H Neutrophils # 8.8 H Lymphocytes # 0.5 L Monocytes # 0.9 Eosinophils # 0.0 Basophils # 0.0 Nucleated Red Blood Cells # 0.0 Sodium Level 143 Potassium Level 4.0 Chloride Level 104 Carbon Dioxide Level 33 H Anion Gap 6 Blood Urea Nitrogen 26 H Creatinine 0.50 L Est Glomerular Filtrat Rate mL/min > 60 Glucose Level 114 Calcium Level 8.5 Phosphorus Level 2.7 # Magnesium Level 1.9 Iron Level 101 Total Iron Binding Capacity 227 L Percent Iron Saturation 44 Medications Current Medications IV Flush (NS 3 ml) 3 ml PER PROTOCOL IV ; Start 03/04/19 at 21:00 Ondansetron HCl (Zofran Inj) 4 mg Q6H PRN IV NAUSEA/VOMITING Last administered on 03/06/19at 02:44; Admin Dose 4 MG; Start 03/04/19 at 21:00 Acetaminophen (Tylenol Tab) 650 mg Q6H PRN PO .PAIN 1-3 OR TEMP; Start 03/04/19 at 21:00 Prednisone (Prednisone) 60 mg DAILY PO Last administered on 03/06/19at 08:31; Admin Dose 60 MG; Start 03/05/19 at 09:00 Albuterol/ Ipratropium (Duoneb) 3 ml Q3H RESP THERAPY PRN HHN SHORTNESS OF BREATH Last administered on 03/06/19at 05:38; Admin Dose 3 ML; Start 03/04/19 at 21:00 Piperacillin Sod/ Tazobactam Sod 100 ml @ 200 mls/hr Q6 IVPB Last administered on 03/06/19at 12:35; Admin Dose 200 MLS/HR; Start 03/05/19 at 00:00 Magnesium Hydroxide (Milk Of Mag) 30 ml Q6 PRN PO GASTROINTESTINAL UPSET Last administered on 03/06/19at 03:00; Admin Dose 30 ML; Start 03/06/19 at 03:00 Assessment/Plan Hospital Course (Demo Recall) IMPRESSION AND PLAN: Severe cavitating lung disease, 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 Probable component of COPD exacerbation with community-acquired pneumonia Plan 1. Continue antibiotics and steroid taper 2. Pulmonary toilet 3. DC planning okay from pulmonary standpoint 4. Okay to discuss goals of care and palliative care. KHADAR LOPEZ MD, [facility] Mar 06, 2019 12:47
--- NOTE | 2019-03-06 14:22 | PN ---
Date/Time of Note Date/Time of Note DATE: 03/06/19 TIME: 14:18 Assessment/Plan VTE Prophylaxis Risk score (from Ns)>0 risk: 3 SCD applied (from Ns): Yes Pharmacological prophylaxis: NA/contraindicated Pharm contraindication: low risk/ambulating Lines/Catheters IV C[facility]from [facility] Saline Lock Assessment/Plan Hospital Course S: no new issues, continues to feel well, has not ambulated yet O : Constitutional: alert, oriented, frail, other (cachectic ) Psych: nl mood/affect Head: normocephalic, atraumatic Eyes: PERRL ENMT: mucosa pink and moist Neck: supple Respiratory: diminished breath sounds (+++); No crackles/rales, No intercostal retraction, No labored breathing, No wheezing Cardiovascular: regular rate and rhythm; No murmurs/extra sounds Gastrointestinal: soft, non-tender, bowel sounds Extremities: other (chronic msc wasting ); No edema Neurological: nl mental status, nl speech; No confused, No focal weakness assessment and plan: 68-year-old male who presented to the emergency room from [facility] with respiratory distress and difficulty breathing over the last 24 hours and was found to be hypoxic. He was admitted and managed as follows: 1. Acute on chronic respiratory failure likely secondary to #2 -improved, back to baseline O2 requirements 2. Acute COPD exacerbation: Improved -Chest CT showing extensive emphysema as well as bronchiectasis -maintained on inhaled bronchodilators, abx , steroids 3. Bilateral large cavitary lesions, extensive in both lungs. -CT was reviewed with the can tender, per pulmonary, these findings are likely chronic. Likely sequelae of prior tuberculosis infection, acute infection while unable to be ruled out is very unlikely. -Pulmonary does not recommended needle biopsy at this time, patient is very high risk for complete pulmonary collapse as he has very little lung left and what is left of his lungs is severely diseased with emphysema 4. Malnutrition/cachexia -dietary consult, on boost TID 5. Chronic hypochromic anemia: Stable 6. Mild hypotension: Improved, chronic? Stable 7. Asymptomatic bradycardia: improved Plan: -Pulmonary recommends conservative management at this time and close outpatient follow-up with pulmonology. -No further intervention i.e TB rule out versus lung biopsy is advised at this time -Patient has a poor long-term prognosis, but the recommendation is to treat his COPD exacerbation and continue serial imaging over time for monitoring of the other findings. This is likely ongoing as findings are chronic. -patient is ready for discharge, but will need medications and confirmation of his residennce. Case mgt and SW working on this -down grade to [facility] for now, PT charley . Result Diagram: 03/06/19 0638 03/06/19 0638 Results 24hrs Laboratory Tests Test 03/05/19 23:20 03/06/19 06:38 Urine Color YELLOW Urine Clarity SLIGHTLY CLOUDY A Urine pH 5.0 Urine Specific [place] 1.024 Urine Ketones NEGATIVE Urine Nitrite NEGATIVE Urine Bilirubin NEGATIVE Urine Urobilinogen NEGATIVE Urine Leukocyte Esterase 1+ H Urine Microscopic RBC 84 H Urine Microscopic WBC 20 H Urine Hemoglobin 3+ H Urine Glucose NEGATIVE Urine Total Protein NEGATIVE White Blood Count 10.4 # Red Blood Count 3.42 L Hemoglobin 10.1 L Hematocrit 31.7 L Mean Corpuscular Volume 92.7 Mean Corpuscular Hemoglobin 29.5 Mean Corpuscular Hemoglobin Concent 31.9 L Red Cell Distribution Width 14.4 Platelet Count 311 Mean Platelet Volume 9.4 Immature Granulocytes % 0.600 H Neutrophils % 85.4 H Lymphocytes % 5.1 L Monocytes % 8.8 Eosinophils % 0.0 Basophils % 0.1 Nucleated Red Blood Cells % 0.0 Immature Granulocytes # 0.060 H Neutrophils # 8.8 H Lymphocytes # 0.5 L Monocytes # 0.9 Eosinophils # 0.0 Basophils # 0.0 Nucleated Red Blood Cells # 0.0 Sodium Level 143 Potassium Level 4.0 Chloride Level 104 Carbon Dioxide Level 33 H Anion Gap 6 Blood Urea Nitrogen 26 H Creatinine 0.50 L Est Glomerular Filtrat Rate mL/min > 60 Glucose Level 114 Calcium Level 8.5 Phosphorus Level 2.7 # Magnesium Level 1.9 Iron Level 101 Total Iron Binding Capacity 227 L Percent Iron Saturation 44 Exam/Review of Systems Exam Vitals Vital Signs Date Temp Pulse Resp B/P (MAP) Pulse Ox O2 O2 Flow FiO2 Time Delivery Rate 03/06/19 90 12:44 03/06/19 97.5 20 101/64 98 Nasal 11:23 (76) Cannula 03/06/19 2.0 07:28 Intake and Output 03/05/19 03/05/19 03/06/19 1515:00 23:00 07:00 IntakeIntake Total 900 ml 650 ml OutputOutput Total 425 ml 500 ml BalanceBalance 475 ml 150 ml Results Results 24hrs Laboratory Tests Test 03/05/19 23:20 03/06/19 06:38 Urine Color YELLOW Urine Clarity SLIGHTLY CLOUDY A Urine pH 5.0 Urine Specific [place] 1.024 Urine Ketones NEGATIVE Urine Nitrite NEGATIVE Urine Bilirubin NEGATIVE Urine Urobilinogen NEGATIVE Urine Leukocyte Esterase 1+ H Urine Microscopic RBC 84 H Urine Microscopic WBC 20 H Urine Hemoglobin 3+ H Urine Glucose NEGATIVE Urine Total Protein NEGATIVE White Blood Count 10.4 # Red Blood Count 3.42 L Hemoglobin 10.1 L Hematocrit 31.7 L Mean Corpuscular Volume 92.7 Mean Corpuscular Hemoglobin 29.5 Mean Corpuscular Hemoglobin Concent 31.9 L Red Cell Distribution Width 14.4 Platelet Count 311 Mean Platelet Volume 9.4 Immature Granulocytes % 0.600 H Neutrophils % 85.4 H Lymphocytes % 5.1 L Monocytes % 8.8 Eosinophils % 0.0 Basophils % 0.1 Nucleated Red Blood Cells % 0.0 Immature Granulocytes # 0.060 H Neutrophils # 8.8 H Lymphocytes # 0.5 L Monocytes # 0.9 Eosinophils # 0.0 Basophils # 0.0 Nucleated Red Blood Cells # 0.0 Sodium Level 143 Potassium Level 4.0 Chloride Level 104 Carbon Dioxide Level 33 H Anion Gap 6 Blood Urea Nitrogen 26 H Creatinine 0.50 L Est Glomerular Filtrat Rate mL/min > 60 Glucose Level 114 Calcium Level 8.5 Phosphorus Level 2.7 # Magnesium Level 1.9 Iron Level 101 Total Iron Binding Capacity 227 L Percent Iron Saturation 44 Medications Medication Current Medications IV Flush (NS 3 ml) 3 ml PER PROTOCOL IV ; Start 03/04/19 at 21:00 Ondansetron HCl (Zofran Inj) 4 mg Q6H PRN IV NAUSEA/VOMITING Last administered on 03/06/19at 02:44; Admin Dose 4 MG; Start 03/04/19 at 21:00 Acetaminophen (Tylenol Tab) 650 mg Q6H PRN PO .PAIN 1-3 OR TEMP; Start 03/04/19 at 21:00 Prednisone (Prednisone) 60 mg DAILY PO Last administered on 03/06/19at 08:31; Admin Dose 60 MG; Start 03/05/19 at 09:00 Albuterol/ Ipratropium (Duoneb) 3 ml Q3H RESP THERAPY PRN HHN SHORTNESS OF BREATH Last administered on 03/06/19 05:38; Admin Dose 3 ML; Start 03/04/19 at 21:00 Piperacillin Sod/ Tazobactam Sod 100 ml @ 200 mls/hr Q6 IVPB Last administered on 03/06/19 12:35; Admin Dose 200 MLS/HR; Start 03/05/19 at 00:00 Magnesium Hydroxide (Milk Of Mag) 30 ml Q6 PRN PO GASTROINTESTINAL UPSET Last administered on 03/06/19at 03:00; Admin Dose 30 ML; Start 03/06/19 at 03:00 ISRAEL MARQUIS Mar 06, 2019 14:22
[2019-03-06] MEDS: MULTIVITAMINS/MINERALS TAB PO SCH (16:22)
[2019-03-07 01:11] VITALS: BP 129/73; PULSE 60; RESP 18
[2019-03-07] MEDS: PIPER-TAZO 3.375 GM IV (PMX) 100 ML IVPB SCH ×4 (05:38→23:10)
[2019-03-07 07:26] VITALS: BP 111/66; PULSE 60; RESP 16
[2019-03-07] MEDS: MULTIVITAMINS/MINERALS TAB PO SCH (08:36)
[2019-03-07] MEDS ORDERED: predniSONE 50 MG TAB PO ONE (09:00)
--- NOTE | 2019-03-07 10:32 | CONS ---
Consult Date/Type/Reason Admit Date/Time Mar 04, 2019 at 20:59 Initial Consult Date Type of Consult Pulmonary Date/Time of Note DATE: 03/07/19 TIME: 10:31 Subjective Comfortable at rest no acute distress. Objective Vital Signs Date Temp Pulse Resp B/P (MAP) Pulse Ox O2 O2 Flow FiO2 Time Delivery Rate 03/07/19 2.0 08:52 03/07/19 97.7 60 16 111/66 100 Nasal 07:26 (81) Cannula Intake and Output 03/06/19 03/06/19 03/07/19 1515:00 23:00 07:00 IntakeIntake Total 1080 ml 200 ml OutputOutput Total 400 ml 500 ml BalanceBalance 680 ml -300 ml Exam GENERAL: Thin cachectic gentleman VITAL SIGNS: per chart NECK: Supple. No JVD or lymphadenopathy. CARDIAC EXAM: S1, S2. No added sounds or murmurs. CHEST: clear bilaterally, No added sounds, rales or wheezes ABDOMEN: Soft, nontender. No guarding or rebound. EXTREMITIES: No cyanosis, clubbing or edema. NEUROLOGIC: Generalized weakness. No focal deficits. Results/Medications Result Diagram: 03/07/19 0525 03/07/19 0525 Results 24 hrs Laboratory Tests Test 03/07/19 05:25 White Blood Count 11.1 H Red Blood Count 3.66 L Hemoglobin 10.8 L Hematocrit 34.4 L Mean Corpuscular Volume 94.0 Mean Corpuscular Hemoglobin 29.5 Mean Corpuscular Hemoglobin Concent 31.4 L Red Cell Distribution Width 14.5 Platelet Count 304 Mean Platelet Volume 9.4 Immature Granulocytes % 0.600 H Neutrophils % 87.0 H Lymphocytes % 5.9 L Monocytes % 6.5 Eosinophils % 0.0 Basophils % 0.0 Nucleated Red Blood Cells % 0.0 Immature Granulocytes # 0.070 H Neutrophils # 9.6 H Lymphocytes # 0.7 L Monocytes # 0.7 Eosinophils # 0.0 Basophils # 0.0 Nucleated Red Blood Cells # 0.0 Sodium Level 142 Potassium Level 4.6 Chloride Level 101 Carbon Dioxide Level 37 H Anion Gap 4 L Blood Urea Nitrogen 17 # Creatinine 0.44 L Est Glomerular Filtrat Rate mL/min > 60 Glucose Level 88 Calcium Level 8.8 Total Bilirubin 0.3 Direct Bilirubin 0.00 Indirect Bilirubin 0.3 Aspartate Amino Transf (AST/SGOT) 31 # Alanine Aminotransferase (ALT/SGPT) 25 Alkaline Phosphatase 118 Total Protein 6.4 Albumin 2.7 L Medications Current Medications IV Flush (NS 3 ml) 3 ml PER PROTOCOL IV ; Start 03/04/19 at 21:00 Ondansetron HCl (Zofran Inj) 4 mg Q6H PRN IV NAUSEA/VOMITING Last administered on 03/06/19at 02:44; Admin Dose 4 MG; Start 03/04/19 at 21:00 Acetaminophen (Tylenol Tab) 650 mg Q6H PRN PO .PAIN 1-3 OR TEMP Last ad ministered on 03/07/19 03:21; Admin Dose 650 MG; Start 03/04/19 at 21:00 Albuterol/ Ipratropium (Duoneb) 3 ml Q3H RESP THERAPY PRN HHN SHORTNESS OF BREATH Last administered on 03/06/19 05:38; Admin Dose 3 ML; Start 03/04/19 at 21:00 Piperacillin Sod/ Tazobactam Sod 100 ml @ 200 mls/hr Q6 IVPB Last administered on 03/07/19at 05:38; Admin Dose 200 MLS/HR; Start 03/05/19 at 00:00 Magnesium Hydroxide (Milk Of Mag) 30 ml Q6 PRN PO GASTROINTESTINAL UPSET Last administered on 03/06/19at 03:00; Admin Dose 30 ML; Start 03/06/19 at 03:00 Multivitamins/ Minerals (Theragran-M) 1 tab DAILY PO Last administered on 03/07/19 08:36; Admin Dose 1 TAB; Start 03/06/19 at 14:30 Prednisone (Prednisone) 40 mg ONCE ONCE PO ; Start 03/08/19 at 09:00; Stop 03/08/19 at 09:01 Prednisone (Prednisone) 30 mg ONCE ONCE PO ; Start 03/09/19 at 09:00; Stop 03/09/19 at 09:01 Prednisone (Prednisone) 20 mg ONCE ONCE PO ; Start 03/10/19 at 09:00; Stop 03/10/19 at 09:01 Prednisone (Prednisone) 10 mg ONCE ONCE PO ; Start 03/11/19 at 09:00; Stop 03/11/19 at 09:01 Assessment/Plan Hospital Course (Demo Recall) IMPRESSION AND PLAN: Severe cavitating lung disease, 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 Probable component of COPD exacerbation with community-acquired pneumonia Plan 1. Continue antibiotics and steroid taper 2. Pulmonary toilet 3. DC planning okay from pulmonary standpoint shelter facility under palliative care may be more appropriate. KHADAR LOPEZ MD, [facility] Mar 07, 2019 10:32
[2019-03-07 14:19] VITALS: BP 132/78; PULSE 96; RESP 17
[2019-03-07 20:00] VITALS: BP 122/81; PULSE 77; RESP 18
--- NOTE | 2019-03-07 21:46 | PN ---
Date/Time of Note Date/Time of Note DATE: 03/07/19 TIME: 21:41 Assessment/Plan VTE Prophylaxis Risk score (from Nsg)>0 risk: 4 SCD applied (from Nsg): Yes Pharmacological prophylaxis: NA/contraindicated Pharm contraindication: low risk/ambulating Lines/Catheters IV Catheter Type (from Nrsg): Saline Lock Assessment/Plan Hospital Course S: no new issues, reviewed with pulm and SW O : Constitutional: alert, oriented, frail, other (cachectic ) Psych: nl mood/affect Head: normocephalic, atraumatic Eyes: PERRL ENMT: mucosa pink and moist Neck: supple Respiratory: diminished breath sounds (+++); No crackles/rales, No intercostal retraction, No labored breathing, No wheezing Cardiovascular: regular rate and rhythm; No murmurs/extra sounds Gastrointestinal: soft, non-tender, bowel sounds Extremities: other (chronic msc wasting ); No edema Neurological: nl mental status, nl speech; No confused, No focal weakness assessment and plan: 68-year-old male who presented to the emergency room from [facility] with respiratory distress and difficulty breathing over the last 24 hours and was found to be hypoxic. He was admitted and managed as follows: 1. Acute on chronic respiratory failure likely secondary to #2 -improved, back to baseline O2 requirements 2. Acute COPD exacerbation: Improved -Chest CT showing extensive emphysema as well as bronchiectasis -maintained on inhaled bronchodilators, abx , steroids 3. Bilateral large cavitary lesions, extensive in both lungs. -CT was reviewed with the research technologist, per pulmonary, these findings are likely chronic. Likely sequelae of prior tuberculosis infection, acute infection while unable to be ruled out is very unlikely. -Pulmonary does not recommended needle biopsy at this time, patient is very high risk for complete pulmonary collapse as he has very little lung left and what is left of his lungs is severely diseased with emphysema 4. Malnutrition/cachexia -dietary consult, on boost TID 5. Chronic hypochromic anemia: Stable 6. Mild hypotension: Improved, chronic? Stable 7. Asymptomatic bradycardia: improved Plan: -Pulmonary recommends conservative management at this time and close outpatient follow-up with pulmunology --No further intervention i.e TB rule out versus lung biopsy is advised at this time -Patient has a poor long-term prognosis , but the recommendation is to treat his COPD exacerbation and continue serial imaging over time for monitoring of the other findings. This is likely ongoing as findings are chronic. -extensive communication with the patient revealed patient may be a good candidate for hopsice care based on endstage pulmonary disease as patient doesn't want .any aggressive care and us tired of going in and out of the hospital. -patient wants to be DNR / DNI -SW present at bedside for discussion, continue current care and review again with patient tomorrow to ensure if this is indeed what he wants and if it will be possible . Result Diagram: 03/07/1952403/07/19524 Results 24hrs Laboratory Tests Test 03/07/19 05:25 White Blood Count 11.1 H Red Blood Count 3.66 L Hemoglobin 10.8 L Hematocrit 34.4 L Mean Corpuscular Volume 94.0 Mean Corpuscular Hemoglobin 29.5 Mean Corpuscular Hemoglobin Concent 31.4 L Red Cell Distribution Width 14.5 Platelet Count 304 Mean Platelet Volume 9.4 Immature Granulocytes % 0.600 H Neutrophils % 87.0 H Lymphocytes % 5.9 L Monocytes % 6.5 Eosinophils % 0.0 Basophils % 0.0 Nucleated Red Blood Cells % 0.0 Immature Granulocytes # 0.070 H Neutrophils # 9.6 H Lymphocytes # 0.7 L Monocytes # 0.7 Eosinophils # 0.0 Basophils # 0.0 Nucleated Red Blood Cells # 0.0 Sodium Level 142 Potassium Level 4.6 Chloride Level 101 Carbon Dioxide Level 37 H Anion Gap 4 L Blood Urea Nitrogen 17 # Creatinine 0.44 L Est Glomerular Filtrat Rate mL/min > 60 Glucose Level 88 Calcium Level 8.8 Total Bilirubin 0.3 Direct Bilirubin 0.00 Indirect Bilirubin 0.3 Aspartate Amino Transf (AST/SGOT) 31 # Alanine Aminotransferase (ALT/SGPT) 25 Alkaline Phosphatase 118 Total Protein 6.4 Albumin 2.7 L Exam/Review of Systems Exam Vitals Vital Signs Date Temp Pulse Resp B/P (MAP) Pulse Ox O2 O2 Flow FiO2 Time Delivery Rate 03/07/19 98.0 77 18 122/81 98 Nasal 20:00 (95) Cannula 03/07/19 2.0 08:52 Intake and Output 03/06/19 03/06/19 03/07/19 1515:00 23:00 07:00 IntakeIntake Total 1080 ml 200 ml OutputOutput Total 400 ml 500 ml BalanceBalance 680 ml -300 ml Results Results 24hrs Laboratory Tests Test 03/07/19 05:25 White Blood Count 11.1 H Red Blood Count 3.66 L Hemoglobin 10.8 L Hematocrit 34.4 L Mean Corpuscular Volume 94.0 Mean Corpuscular Hemoglobin 29.5 Mean Corpuscular Hemoglobin Concent 31.4 L Red Cell Distribution Width 14.5 Platelet Count 304 Mean Platelet Volume 9.4 Immature Granulocytes % 0.600 H Neutrophils % 87.0 H Lymphocytes % 5.9 L Monocytes % 6.5 Eosinophils % 0.0 Basophils % 0.0 Nucleated Red Blood Cells % 0.0 Immature Granulocytes # 0.070 H Neutrophils # 9.6 H Lymphocytes # 0.7 L Monocytes # 0.7 Eosinophils # 0.0 Basophils # 0.0 Nucleated Red Blood Cells # 0.0 Sodium Level 142 Potassium Level 4.6 Chloride Level 101 Carbon Dioxide Level 37 H Anion Gap 4 L Blood Urea Nitrogen 17 # Creatinine 0.44 L Est Glomerular Filtrat Rate mL/min > 60 Glucose Level 88 Calcium Level 8.8 Total Bilirubin 0.3 Direct Bilirubin 0.00 Indirect Bilirubin 0.3 Aspartate Amino Transf (AST/SGOT) 31 # Alanine Aminotransferase (ALT/SGPT) 25 Alkaline Phosphatase 118 Total Protein 6.4 Albumin 2.7 L Medications Medication Current Medications IV Flush (NS 3 ml) 3 ml PER PROTOCOL IV ; Start 03/04/19 at 21:00 Ondansetron HCl (Zofran Inj) 4 mg Q6H PRN IV NAUSEA/VOMITING Last administered on 03/06/19at 02:44; Admin Dose 4 MG; Start 03/04/19 at 21:00 Acetaminophen (Tylenol Tab) 650 mg Q6H PRN PO .PAIN 1-3 OR TEMP Last administered on 03/07/19 03:21; Admin Dose 650 MG; Start 03/04/19 at 21:00 Albuterol/ Ipratropium (Duoneb) 3 ml Q3H RESP THERAPY PRN HHN SHORTNESS OF BREATH Last administered on 03/06/19 05:38; Admin Dose 3 ML; Start 03/04/19 at 21:00 Piperacillin Sod/ Tazobactam Sod 100 ml @ 200 mls/hr Q6 IVPB Last administered on 03/07/19 18:07; Admin Dose 200 MLS/HR; Start 03/05/19 at 00:00 Magnesium Hydroxide (Milk Of Mag) 30 ml Q6 PRN PO GASTROINTESTINAL UPSET Last administered on 03/06/19 03:00; Admin Dose 30 ML; Start 03/06/19 at 03:00 Multivitamins/ Minerals (Theragran-M) 1 tab DAILY PO Last administered on 03/07/19 08:36; Admin Dose 1 TAB; Start 03/06/19 at 14:30 Prednisone (Prednisone) 40 mg ONCE ONCE PO ; Start 03/08/19 at 09:00; Stop 03/08/19 at 09:01 Prednisone (Prednisone) 30 mg ONCE ONCE PO ; Start 03/09/19 at 09:00; Stop 03/09/19 at 09:01 Prednisone (Prednisone) 20 mg ONCE ONCE PO ; Start 03/10/19 at 09:00; Stop 03/10/19 at 09:01 Prednisone (Prednisone) 10 mg ONCE ONCE PO ; Start 03/11/19 at 09:00; Stop 03/11/19 at 09:01 ISRAEL MARQUIS Mar 07, 2019 21:46
[2019-03-08 02:00] VITALS: BP 124/89; PULSE 78; RESP 19
[2019-03-08] MEDS: PIPER-TAZO 3.375 GM IV (PMX) 100 ML IVPB SCH ×3 (05:59→18:28)
[2019-03-08] MEDS ORDERED: predniSONE 20 MG TAB PO ONE (09:00)
[2019-03-08 09:13] VITALS: BP 85/51; PULSE 60; RESP 20
[2019-03-08] MEDS: MULTIVITAMINS/MINERALS TAB PO SCH (09:15)
--- NOTE | 2019-03-08 13:22 | CONS ---
Assessment/Plan Assessment/Plan Assessment/Plan (Daily) Assessment and recommendations; 1. 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 Patient however clinically is improving on current treatment regimen. 2. Underlying severe COPD as well. 3. Chronic appearing malnutrition. Continue current supportive care. Patient responding well to current treatment regimen. Consultation Date/Type/Reason Admit Date/Time Mar 04, 2019 at 20:59 Initial Consult Date Type of Consult Pulmonary Patient condition is stable. Remains awake and alert. Complains of very minimal cough. Denies any shortness of breath at rest. General exam; elderly male, awake and alert. Having lunch on bed. Currently in no distress. Reason for Consultation H EENT exam; supple neck, no JVD. No lymphadenopathy. Midline trachea. No thyromegaly. Patient is edentulous. No neck masses. Chest exam; diminished breath sounds throughout. S1-S2 audible, no murmurs. Regular rhythm. Abdomen exam; soft, nontender. Scaphoid. No organomegaly. Bowel sounds audible. Extremity exam; no peripheral edema clubbing. SLEEVE SEPARATOR exam; no focal deficit. Date/Time of Note DATE: 03/08/19 TIME: 13:20 Exam/Review of Systems Exam Vitals Vital Signs Date Temp Pulse Resp B/P (MAP) Pulse Ox O2 O2 Flow FiO2 Time Delivery Rate 03/08/19 Nasal 2.0 10:44 Cannula 03/08/19 97.0 60 20 85/51 (62) 96 09:13 Intake and Output 03/07/19 03/07/19 03/08/19 1515:00 23:00 07:00 IntakeIntake Total 560 ml 220 ml 100 ml OutputOutput Total 990 ml 475 ml 400 ml BalanceBalance -430 ml -255 ml -300 ml Results Result Diagram: 03/08/19 0431 03/08/19 0431 Results 24hrs Laboratory Tests Test 03/08/19 04:31 White Blood Count 9.3 Red Blood Count 3.74 L Hemoglobin 10.8 L Hematocrit 34.4 L Mean Corpuscular Volume 92.0 Mean Corpuscular Hemoglobin 28.9 L Mean Corpuscular Hemoglobin Concent 31.4 L Red Cell Distribution Width 14.4 Platelet Count 279 Mean Platelet Volume 9.5 Immature Granulocytes % 0.400 Neutrophils % 81.1 H Lymphocytes % 10.3 L Monocytes % 8.2 Eosinophils % 0.0 Basophils % 0.0 Nucleated Red Blood Cells % 0.0 Immature Granulocytes # 0.040 H Neutrophils # 7.6 H Lymphocytes # 1.0 Monocytes # 0.8 Eosinophils # 0.0 Basophils # 0.0 Nucleated Red Blood Cells # 0.0 Sodium Level 138 Potassium Level 4.2 Chloride Level 98 Carbon Dioxide Level 37 H Anion Gap 3 L Blood Urea Nitrogen 18 Creatinine 0.39 L Est Glomerular Filtrat Rate mL/min > 60 Glucose Level 83 Calcium Level 8.8 Medications Medication Current Medications IV Flush (NS 3 ml) 3 ml PER PROTOCOL IV ; Start 03/04/19 at 21:00 Ondansetron HCl (Zofran Inj) 4 mg Q6H PRN IV NAUSEA/VOMITING Last administered on 03/06/19at 02:44; Admin Dose 4 MG; Start 03/04/19 at 21:00 Acetaminophen (Tylenol Tab) 650 mg Q6H PRN PO .PAIN 1-3 OR TEMP Last administered on 03/07/19at 03:21; Admin Dose 650 MG; Start 03/04/19 at 21:00 Albuterol/ Ipratropium (Duoneb) 3 ml Q3H RESP THERAPY PRN HHN SHORTNESS OF BREATH Last administered on 03/06/19at 05:38; Admin Dose 3 ML; Start 03/04/19 at 21:00 Piperacillin Sod/ Tazobactam Sod 100 ml @ 200 mls/hr Q6 IVPB Last administered on 03/08/19at 12:44; Admin Dose 200 MLS/HR; Start 03/05/19 at 00:00 Magnesium Hydroxide (Milk Of Mag) 30 ml Q6 PRN PO GASTROINTESTINAL UPSET Last administered on 03/06/19 03:00; Admin Dose 30 ML; Start 03/06/19 at 03:00 Multivitamins/ Minerals (Theragran-M) 1 tab DAILY PO Last administered on 03/08/19 09:15; Admin Dose 1 TAB; Start 03/06/19 at 14:30 Prednisone (Prednisone) 30 mg ONCE ONCE PO ; Start 03/09/19 at 09:00; Stop 03/09/19 at 09:01 Prednisone (Prednisone) 20 mg ONCE ONCE PO ; Start 03/10/19 at 09:00; Stop 03/10/19 at 09:01 Prednisone (Prednisone) 10 mg ONCE ONCE PO ; Start 03/11/19 at 09:00; Stop 03/11/19 at 09:01 MELANIA REYES Mar 08, 2019 13:22
[2019-03-08 16:15] VITALS: BP 116/79; PULSE 75; RESP 18
[2019-03-08 20:00] VITALS: BP 111/73; PULSE 85; RESP 18
--- NOTE | 2019-03-08 22:51 | PN ---
Date/Time of Note Date/Time of Note DATE: 03/08/19 TIME: 22:49 Assessment/Plan VTE Prophylaxis Risk score (from Nsg)>0 risk: 2 SCD applied (from Nsg): Yes Pharmacological prophylaxis: heparin Lines/Catheters IV Catheter Type (from Nrsg): Peripheral IV Assessment/Plan Hospital Course S: no new issues, SW working on possible hospice O : Constitutional: alert, oriented, frail, other (cachectic ) Psych: nl mood/affect Head: normocephalic, atraumatic Eyes: PERRL ENMT: mucosa pink and moist Neck: supple Respiratory: diminished breath sounds (+++); No crackles/rales, No intercostal retraction, No labored breathing, No wheezing Cardiovascular: regular rate and rhythm; No murmurs/extra sounds Gastrointestinal: soft, non-tender, bowel sounds Extremities: other (chronic msc wasting ); No edema Neurological: nl mental status, nl speech; No confused, No focal weakness assessment and plan: 68-year-old male who presented to the emergency room [id number] with respiratory distress and difficulty breathing over the last 24 hours and was found to be hypoxic. He was admitted and managed as follows: 1. Acute on chronic respiratory failure likely secondary to #2 -improved, back to baseline O2 requirements 2. Acute COPD exacerbation: Improved -Chest CT showing extensive emphysema as well as bronchiectasis -maintained on inhaled bronchodilators, abx , steroids 3. Bilateral large cavitary lesions, extensive in both lungs. -CT was reviewed with the security systems integrator, per pulmonary, these findings are likely chronic. Likely sequelae of prior tuberculosis infection, acute infection while unable to be ruled out is very unlikely. -Pulmonary does not recommended needle biopsy at this time, patient is very high risk for complete pulmonary collapse as he has very little lung left and what is left of his lungs is severely diseased with emphysema 4. Malnutrition/cachexia -dietary consult, on boost TID 5. Chronic hypochromic anemia: Stable 6. Mild hypotension: Improved, chronic? Stable 7. Asymptomatic bradycardia: improved 8. DNR/ DNI Plan: -Pulmonary recommends conservative management at this time and palliative car e --No further intervention i.e TB rule out versus lung biopsy is advised at this time -patient open to hospice, SW to try to arrange, d/t his insurance status, it's challenging Result Diagram: 03/08/19 0431 03/08/19 0431 Results 24hrs Laboratory Tests Test 03/08/19 04:31 White Blood Count 9.3 Red Blood Count 3.74 L Hemoglobin 10.8 L Hematocrit 34.4 L Mean Corpuscular Volume 92.0 Mean Corpuscular Hemoglobin 28.9 L Mean Corpuscular Hemoglobin Concent 31.4 L Red Cell Distribution Width 14.4 Platelet Count 279 Mean Platelet Volume 9.5 Immature Granulocytes % 0.400 Neutrophils % 81.1 H Lymphocytes % 10.3 L Monocytes % 8.2 Eosinophils % 0.0 Basophils % 0.0 Nucleated Red Blood Cells % 0.0 Immature Granulocytes # 0.040 H Neutrophils # 7.6 H Lymphocytes # 1.0 Monocytes # 0.8 Eosinophils # 0.0 Basophils # 0.0 Nucleated Red Blood Cells # 0.0 Sodium Level 138 Potassium Level 4.2 Chloride Level 98 Carbon Dioxide Level 37 H Anion Gap 3 L Blood Urea Nitrogen 18 Creatinine 0.39 L Est Glomerular Filtrat Rate mL/min > 60 Glucose Level 83 Calcium Level 8.8 Exam/Review of Systems Exam Vitals Vital Signs Date Temp Pulse Resp B/P (MAP) Pulse Ox O2 O2 Flow FiO2 Time Delivery Rate 03/08/19 97.9 85 18 111/73 97 20:00 (86) 03/08/19 Nasal 2.0 10:44 Cannula Intake and Output 03/07/19 03/07/19 03/08/19 1515:00 23:00 07:00 IntakeIntake Total 560 ml 220 ml 100 ml OutputOutput Total 990 ml 475 ml 400 ml BalanceBalance -430 ml -255 ml -300 ml Results Results 24hrs Laboratory Tests Test 03/08/19 04:31 White Blood Count 9.3 Red Blood Count 3.74 L Hemoglobin 10.8 L Hematocrit 34.4 L Mean Corpuscular Volume 92.0 Mean Corpuscular Hemoglobin 28.9 L Mean Corpuscular Hemoglobin Concent 31.4 L Red Cell Distribution Width 14.4 Platelet Count 279 Mean Platelet Volume 9.5 Immature Granulocytes % 0.400 Neutrophils % 81.1 H Lymphocytes % 10.3 L Monocytes % 8.2 Eosinophils % 0.0 Basophils % 0.0 Nucleated Red Blood Cells % 0.0 Immature Granulocytes # 0.040 H Neutrophils # 7.6 H Lymphocytes # 1.0 Monocytes # 0.8 Eosinophils # 0.0 Basophils # 0.0 Nucleated Red Blood Cells # 0.0 Sodium Level 138 Potassium Level 4.2 Chloride Level 98 Carbon Dioxide Level 37 H Anion Gap 3 L Blood Urea Nitrogen 18 Creatinine 0.39 L Est Glomerular Filtrat Rate mL/min > 60 Glucose Level 83 Calcium Level 8.8 Medications Medication Current Medications IV Flush (NS 3 ml) 3 ml PER PROTOCOL IV ; Start 03/04/19 at 21:00 Ondansetron HCl (Zofran Inj) 4 mg Q6H PRN IV NAUSEA/VOMITING Last administered on 03/06/19 02:44; Admin Dose 4 MG; Start 03/04/19 at 21:00 Acetaminophen (Tylenol Tab) 650 mg Q6H PRN PO .PAIN 1-3 OR TEMP Last administered on 03/07/19 03:21; Admin Dose 650 MG; Start 03/04/19 at 21:00 Albuterol/ Ipratropium (Duoneb) 3 ml Q3H RESP THERAPY PRN HHN SHORTNESS OF BREATH Last administered on 03/06/19 05:38; Admin Dose 3 ML; Start 03/04/19 at 21:00 Piperacillin Sod/ Tazobactam Sod 100 ml @ 200 mls/hr Q6 IVPB Last administered on 03/08/19 18:28; Admin Dose 200 MLS/HR; Start 03/05/19 at 00:00 Magnesium Hydroxide (Milk Of Mag) 30 ml Q6 PRN PO GASTROINTESTINAL UPSET Last administered on 03/06/19 03:00; Admin Dose 30 ML; Start 03/06/19 at 03:00 Multivitamins/ Minerals (Theragran-M) 1 tab DAILY PO Last administered on 03/08/19 09:15; Admin Dose 1 TAB; Start 03/06/19 at 14:30 Prednisone (Prednisone) 30 mg ONCE ONCE PO ; Start 03/09/19 at 09:00; Stop 03/09/19 at 09:01 Prednisone (Prednisone) 20 mg ONCE ONCE PO ; Start 03/10/19 at 09:00; Stop 03/10/19 at 09:01 Prednisone (Prednisone) 10 mg ONCE ONCE PO ; Start 03/11/19 at 09:00; Stop 03/11/19 at 09:01 ISRAEL MARQUIS Mar 08, 2019 22:51
[2019-03-09] MEDS: PIPER-TAZO 3.375 GM IV (PMX) 100 ML IVPB SCH ×4 (00:07→17:26)
[2019-03-09 02:00] VITALS: BP 133/86; PULSE 69; RESP 18
[2019-03-09 07:24] VITALS: BP 121/88; PULSE 82; RESP 18
[2019-03-09] MEDS: MULTIVITAMINS/MINERALS TAB PO SCH (09:00)
[2019-03-09] MEDS ORDERED: predniSONE 10 MG TAB PO ONE (09:00)
[2019-03-09] MEDS: HEPARIN 5,000 UNIT/1 ML VIAL SC SCH ×2 (09:08→20:31)
--- NOTE | 2019-03-09 14:05 | PN ---
Date/Time of Note Date/Time of Note DATE: 03/09/19 TIME: 14:01 Assessment/Plan VTE Prophylaxis Risk score (from Nsg)>0 risk: 2 SCD applied (from Nsg): Yes Pharmacological prophylaxis: heparin Lines/Catheters IV Catheter Type (from Nrsg): Peripheral IV Assessment/Plan Hospital Course S: pee pee is hard to come out, just drips , SW working on possible hospice O : Constitutional: alert, oriented, frail, other (cachectic ) Psych: nl mood/affect Head: normocephalic, atraumatic Eyes: PERRL ENMT: mucosa pink and moist Neck: supple Respiratory: diminished breath sounds (+++); No crackles/rales, No intercostal retraction, No labored breathing, No wheezing Cardiovascular: regular rate and rhythm; No murmurs/extra sounds Gastrointestinal: soft, non-tender, bowel sounds Extremities: other (chronic msc wasting ); No edema Neurological: nl mental status, nl speech; No confused, No focal weakness assessment and plan: 68-year-old male who presented to the emergency room from [facility] with respiratory distress and difficulty breathing over the last 24 hours and was found to be hypoxic. He was admitted and managed as follows: 1. Acute on chronic respiratory failure likely secondary to #2 -improved, back to baseline O2 requirements 2. Acute COPD exacerbation: Improved -Chest CT showing extensive emphysema as well as bronchiectasis -maintained on inhaled bronchodilators, abx , steroids 3. Bilateral large cavitary lesions, extensive in both lungs. -CT was reviewed with the organization development consultant, per pulmonary, these findings are likely chronic. Likely sequelae of prior tuberculosis infection, acute infection while unable to be ruled out is very unlikely. -Pulmonary does not recommended needle biopsy at this time, patient is very high risk for complete pulmonary collapse as he has very little lung left and what is left of his lungs is severely diseased with emphysema 4. Malnutrition/cachexia -dietary consult, on boost TID 5. Chronic hypochromic anemia: Stable 6. Mild hypotension: Improved, chronic? Stable 7. Asymptomatic bradycardia: improved 8. DNR/ DNI 9. LUTs: check PVR, send urine cx, may need rich / urology, psa, prostatic USS Plan: -No TB workup indicated, findings are sequelae of prior TB infection -patient unable to go back to previous [facility] as location now doesn't exist -patient has consented to hospice, SW to try to arrange, d/t his insurance status, it's challenging Result Diagram: 03/08/1943003/08/19430 Exam/Review of Systems Exam Vitals Vital Signs Date Temp Pulse Resp B/P (MAP) Pulse Ox O2 O2 Flow FiO2 Time Delivery Rate 03/09/19 Nasal 2.0 09:00 Cannula 03/09/19 97.6 82 18 121/88 100 07:24 (99) Intake and Output 03/08/19 03/08/19 03/09/19 1515:00 23:00 07:00 IntakeIntake Total 360 ml 1260 ml 100 ml OutputOutput Total 500 ml 600 ml BalanceBalance -140 ml 660 ml 100 ml Medications Medication Current Medications IV Flush (NS 3 ml) 3 ml PER PROTOCOL IV ; Start 03/04/19 at 21:00 Ondansetron HCl (Zofran Inj) 4 mg Q6H PRN IV NAUSEA/VOMITING Last administered on 03/06/19at 02:44; Admin Dose 4 MG; Start 03/04/19 at 21:00 Acetaminophen (Tylenol Tab) 650 mg Q6H PRN PO .PAIN 1-3 OR TEMP Last administered on 03/07/19 03:21; Admin Dose 650 MG; Start 03/04/19 at 21:00 Albuterol/ Ipratropium (Duoneb) 3 ml Q3H RESP THERAPY PRN HHN SHORTNESS OF BREATH Last administered on 03/06/19at 05:38; Admin Dose 3 ML; Start 03/04/19 at 21:00 Piperacillin Sod/ Tazobactam Sod 100 ml @ 200 mls/hr Q6 IVPB Last administered on 03/09/19 12:06; Admin Dose 200 MLS/HR; Start 03/05/19 at 00:00 Magnesium Hydroxide (Milk Of Mag) 30 ml Q6 PRN PO GASTROINTESTINAL UPSET Last administered on 03/06/19 03:00; Admin Dose 30 ML; Start 03/06/19 at 03:00 Multivitamins/ Minerals (Theragran-M) 1 tab DAILY PO Last administered on 03/09/19 09:00; Admin Dose 1 TAB; Start 03/06/19 at 14:30 Prednisone (Prednisone) 20 mg ONCE ONCE PO ; Start 03/10/19 at 09:00; Stop 03/10/19 at 09:01 Prednisone (Prednisone) 10 mg ONCE ONCE PO ; Start 03/11/19 at 09:00; Stop at 09:01 Heparin Sodium (Porcine) (Heparin (5000 Units/1ml)) 5,000 unit BID SC Last administered on 03/09/19at 09:08; Admin Dose 5,000 UNIT; Start 03/09/19 at 09:00 ISRAEL MARQUIS Mar 09, 2019 14:04
[2019-03-09 15:29] VITALS: BP 81/63; PULSE 125; RESP 18
[2019-03-09 15:34] VITALS: PULSE 90
--- NOTE | 2019-03-09 16:21 | CONS ---
Consult Date/Type/Reason Admit Date/Time Mar 04, 2019 at 20:59 Initial Consult Date Type of Consult Pulmonary Date/Time of Note DATE: 03/09/19 TIME: 16:20 Subjective Patient remains stable no respiratory distress. Objective Vital Signs Date Temp Pulse Resp B/P (MAP) Pulse Ox O2 O2 Flow FiO2 Time Delivery Rate 03/09/19 90 99 15:34 03/09/19 97.6 18 81/63 (69) 15:29 03/09/19 Nasal 2.0 09:00 Cannula Intake and Output 03/08/19 03/08/19 03/09/19 1515:00 23:00 07:00 IntakeIntake Total 360 ml 1260 ml 100 ml OutputOutput Total 500 ml 600 ml BalanceBalance -140 ml 660 ml 100 ml Exam GENERAL: Thin elderly gentleman VITAL SIGNS: per chart NECK: Supple. No JVD or lymphadenopathy. CARDIAC EXAM: S1, S2. No added sounds or murmurs. CHEST: clear bilaterally, No added sounds, rales or wheezes ABDOMEN: Soft, nontender. No guarding or rebound. EXTREMITIES: No cyanosis, clubbing or edema. NEUROLOGIC: Generalized weakness. No focal deficits. Results/Medications Result Diagram: 03/08/1943003/08/19430 Medications Current Medications IV Flush (NS 3 ml) 3 ml PER PROTOCOL IV ; Start 03/04/19 at 21:00 Ondansetron HCl (Zofran Inj) 4 mg Q6H PRN IV NAUSEA/VOMITING Last administered on 03/06/19at 02:44; Admin Dose 4 MG; Start 03/04/19 at 21:00 Acetaminophen (Tylenol Tab) 650 mg Q6H PRN PO .PAIN 1-3 OR TEMP Last administered on 03/07/19 03:21; Admin Dose 650 MG; Start 03/04/19 at 21:00 Albuterol/ Ipratropium (Duoneb) 3 ml Q3H RESP THERAPY PRN HHN SHORTNESS OF BREATH Last administered on 03/06/19at 05:38; Admin Dose 3 ML; Start 03/04/19 at 21:00 Piperacillin Sod/ Tazobactam Sod 100 ml @ 200 mls/hr Q6 IVPB Last administered on 03/09/19at 12:06; Admin Dose 200 MLS/HR; Start 03/05/19 at 00:00 Magnesium Hydroxide (Milk Of Mag) 30 ml Q6 PRN PO GASTROINTESTINAL UPSET Last administered on 03/06/19at 03:00; Admin Dose 30 ML; Start 03/06/19 at 03:00 Multivitamins/ Minerals (Theragran-M) 1 tab DAILY PO Last administered on 03/09/19at 09:00; Admin Dose 1 TAB; Start 03/06/19 at 14:30 Prednisone (Prednisone) 20 mg ONCE ONCE PO ; Start 03/10/19 at 09:00; Stop 03/10/19 at 09:01 Prednisone (Prednisone) 10 mg ONCE ONCE PO ; Start 03/11/19 at 09:00; Stop 03/11/19 at 09:01 Heparin Sodium (Porcine) (Heparin (5000 Units/1ml)) 5,000 unit BID SC Last administered on 03/09/19at 09:08; Admin Dose 5,000 UNIT; Start 03/09/19 at 09:00 Tamsulosin HCl (Flomax) 0.4 mg HS PO ; Start 03/09/19 at 21:00 Assessment/Plan Hospital Course (Demo Recall) IMPRESSION AND PLAN: Severe cavitating lung disease, 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 Probable component of COPD exacerbation with community-acquired pneumonia Radiographic changes appear to be chronic in nature and are not consistent with an acute mycobacterial infection. Plan 1. Continue antibiotics and steroid taper 2. Pulmonary toilet 3. DC planning okay from pulmonary standpoint 4. No further work-up for active TB currently recommended. senior living facility under palliative care may be more appropriate. KHADAR LOPEZ MD, [facility] Mar 09, 2019 16:21
--- NOTE | 2019-03-09 19:20 | CONS ---
Assessment/Plan Assessment/Plan Hospital Course (Demo Recall) Mr. Dodson is a 68 yo man with history of COPD on home oxygen who presented to the ED from board and care in acute respiratory distress. He reports feeling progressive shortness of breath and wheezing. He reports 20 lbs weight loss over the past 3-4 months. Appetite is variable, on days he is very hungry he tries to drink lots of Ensure. He says he was diagnosed with a bacterial infection of the lung and was placed on antibiotics for 6-9 months. He started this regimen 2 months ago. He follows Dr. Sintia Gramajo at [facility]. Typically uses 2-3L oxygen at home. Also he reports having Paul for 2 months when he was at [facility] due to urinary obstruction but it was removed recently. Initially he was voiding well but for 2 days he reports no urine output despite drinking plenty of fluids. He states that he urinates small amount. He denies any history of gross hematuria. He underwent a renal ultrasound and that showed: Right nephrolithiasis. No evidence of hydronephrosis. Moderate amount of layering debris and possible stones within the urinary bladder. CT scan of the chest: 1. Large cavitary mass within the left upper lobe with thickened rodgers and irregular nodular borders measuring 8.7 cm and large right upper lobe cavitary mass measuring up to 8.2 cm. Additional 4.5 cm located within the superior segment of the left lower lobe measure up to 4.5 cm. Suspect sequela of underlying infection such as tuberculosis. Correlate with clinical findings and history. 2. Severe bilateral emphysematous changes and 1.6 cm cavitary lesion within right upper lobe with architectural distortion and adjacent interstitial thickening. There is right middle lobe cystic and traction bronchiectasis. Findings are likely sequela of scarring and pleural of prior infection such as tuberculosis. 3. Numerous pulmonary nodules scattered throughout both lungs, predominately within the lung bases. Findings are probably related to history of prior infection/TB. 4. Underlying malignancy is not excluded. 5. 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 Upon reviewing the ultrasound of the bladder he may well have a mass in the right side of the bladder and that could be a bladder tumor with possible calcification on it. He used to be a smoker and he has lesions in the lungs which also could be metastatic. Even though on the ultrasound it is reported as debris however I inserted a 16 [place] Paul catheter for him and the urine came out very clear. There was no sediment or pus or even blood. I will send urine for UA, culture and sensitivity and cytology. He may need to have a cystoscopy to check for bladder tumor. Consultation Date/Type/Reason Admit Date/Time Mar 04, 2019 at 20:59 Date of Consultation: Mar 09, 2019 Type of Consult Urology Reason for Consultation Possible bladder stones and debris inside the bladder on the CT scan Requesting Provider: ISRAEL MARQUIS Date/Time of Note DATE: 03/09/19 TIME: 19:03 Hx of Present Illness Mr. Dodson is a 68 yo man with history of COPD on home oxygen who presented to the ED from board and care in acute respiratory distress. He reports feeling progressive shortness of breath and wheezing. He reports 20 lbs weight loss over the past 3-4 months. Appetite is variable, on days he is very hungry he tries to drink lots of Ensure. He says he was diagnosed with a bacterial infection of the lung and was placed on antibiotics for 6-9 months. He started this regimen 2 months ago. He follows Dr. Sintia Gramajo at [facility]. Typically uses 2-3L oxygen at home. Also he reports having Paul for 2 months when he was at [facility] due to urinary obstruction but it was removed recently. Initially he was voiding well but for 2 days he reports no urine output despite drinking plenty of fluids. He states that he urinates small amount. He denies any history of gross hematuria. He underwent a renal ultrasound and that showed: Right nephrolithiasis. No evidence of hydronephrosis. Moderate amount of layering debris and possible stones within the urinary bladder. CT scan of the chest: 1. Large cavitary mass within the left upper lobe with thickened rodgers and irregular nodular borders measuring 8.7 cm and large right upper lobe cavitary mass measuring up to 8.2 cm. Additional 4.5 cm located within the superior segment of the left lower lobe measure up to 4.5 cm. Suspect sequela of underlying infection such as tuberculosis. Correlate with clinical findings and history. 2. Severe bilateral emphysematous changes and 1.6 cm cavitary lesion within right upper lobe with architectural distortion and adjacent interstitial thickening. There is right middle lobe cystic and traction bronchiectasis. Findings are likely sequela of scarring and pleural of prior infection such as tuberculosis. 3. Numerous pulmonary nodules scattered throughout both lungs, predominately w ithin the lung bases. Findings are probably related to history of prior infection/TB. 4. Underlying malignancy is not excluded. 5. 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 Constitutional: requiring O2, other (Very weak) Eyes: no complaints ENT: no complaints Respiratory: shortness of breath Cardiovascular: No chest pain Gastrointestinal: No nausea, No vomiting Genitourinary: No dysuria, No hematuria Musculoskeletal: no complaints Skin: no complaints Neurologic: no complaints Endocrine: no complaints Lymphatic: no complaints Psychological: no complaints Immunologic: no complaints Past Medical History Medical History: other (As per history of present illness, COPD) Home Meds Reported Medications [Ascorbic Acid] No Conflict Check, 1 TAB PO 03/04/19 [Lisinopril] No Conflict Check, 1 TAB PO 03/04/19 [Digoxin] No Conflict Check, 1 TAB PO 03/04/19 [Albuterol] No Conflict Check, INH NEEDED 03/04/19 Medications Current Medications IV Flush (NS 3 ml) 3 ml PER PROTOCOL IV ; Start 03/04/19 at 21:00 Ondansetron HCl (Zofran Inj) 4 mg Q6H PRN IV NAUSEA/VOMITING Last administered on 03/06/19at 02:44; Admin Dose 4 MG; Start 03/04/19 at 21:00 Acetaminophen (Tylenol Tab) 650 mg Q6H PRN PO .PAIN 1-3 OR TEMP Last administered on 03/07/19 03:21; Admin Dose 650 MG; Start 03/04/19 at 21:00 Albuterol/ Ipratropium (Duoneb) 3 ml Q3H RESP THERAPY PRN HHN SHORTNESS OF BREATH Last administered on 03/06/19 05:38; Admin Dose 3 ML; Start 03/04/19 at 21:00 Piperacillin Sod/ Tazobactam Sod 100 ml @ 200 mls/hr Q6 IVPB Last administered on 03/09/19 17:26; Admin Dose 200 MLS/HR; Start 03/05/19 at 00:00 Magnesium Hydroxide (Milk Of Mag) 30 ml Q6 PRN PO GASTROINTESTINAL UPSET Last administered on 6/4/19at 03:00; Admin Dose 30 ML; Start 03/06/19 at 03:00 Multivitamins/ Minerals (Theragran-M) 1 tab DAILY PO Last administered on 03/09/19at 09:00; Admin Dose 1 TAB; Start 03/06/19 at 14:30 Prednisone (Prednisone) 20 mg ONCE ONCE PO ; Start 03/10/19 at 09:00; Stop 03/10/19 at 09:01 Prednisone (Prednisone) 10 mg ONCE ONCE PO ; Start 03/11/19 at 09:00; Stop 03/11/19 at 09:01 Heparin Sodium (Porcine) (Heparin (5000 Units/1ml)) 5,000 unit BID SC Last administered on 03/09/19at 09:08; Admin Dose 5,000 UNIT; Start 03/09/19 at 09:00 Tamsulosin HCl (Flomax) 0.4 mg HS PO ; Start 03/09/19 at 21:00 Allergies: Coded Allergies: No Known Allergy (Unverified , 03/04/19) Past Surgical History Past Surgical Hx: no surgical history Social History Alcohol Use: none Smoking Status: Former smoker Drug Use: none Other Social History He has 1 son who lives in [place] Exam/Review of Systems Exam Vitals Vital Signs Date Temp Pulse Resp B/P (MAP) Pulse Ox O2 O2 Flow FiO2 Time Delivery Rate 03/09/19 90 99 15:34 03/09/19 97.6 18 81/63 (69) 15:29 03/09/19 Nasal 2.0 09:00 Cannula Intake and Output 03/08/19 03/08/19 03/09/19 1515:00 23:00 07:00 IntakeIntake Total 360 ml 1260 ml 100 ml OutputOutput Total 500 ml 600 ml BalanceBalance -140 ml 660 ml 100 ml Constitutional: alert, oriented Psych: no complaints Head: normocephalic Eyes: nl conjunctiva ENMT: nl external ears & nose Neck: supple, non-tender Respiratory: normal air movement Cardiovascular: No jugular venous distention (JVD) Gastrointestinal: soft; No surgical scars Genitourinary - Male: nl penis, nl scrotum, other (Rectal exam reveals soft prostate and it is not large) Musculoskeletal: nl extremities to inspection Extremities: No calf tenderness Skin: nl turgor, other (Very cachectic person) Results Result Diagram: 6/6/19 0431 03/08/19 0431 Results 24hrs Laboratory Tests Test 03/09/19 14:52 Prostate Specific Antigen 2.[address] scan of the chest: 1. Large cavitary mass within the left upper lobe with thickened rodgers and irregular nodular borders measuring 8.7 cm and large right upper lobe cavitary mass measuring up to 8.2 cm. Additional 4.5 cm located within the superior segment of the left lower lobe measure up to 4.5 cm. Suspect sequela of underlying infection such as tuberculosis. Correlate with clinical findings and history. 2. Severe bilateral emphysematous changes and 1.6 cm cavitary lesion within right upper lobe with architectural distortion and adjacent interstitial thickening. There is right middle lobe cystic and traction bronchiectasis. Findings are likely sequela of scarring and pleural of prior infection such as tuberculosis. 3. Numerous pulmonary nodules scattered throughout both lungs, predominately within the lung bases. Findings are probably related to history of prior infection/TB. 4. Underlying malignancy is not excluded. 5. 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 Renal and bladder ultrasound: Right nephrolithiasis. No evidence of hydronephrosis. Moderate amount of layering debris and possible stones within the urinary blad bri. Medications Medication Current Medications IV Flush (NS 3 ml) 3 ml PER PROTOCOL IV ; Start 03/04/19 at 21:00 Ondansetron HCl (Zofran Inj) 4 mg Q6H PRN IV NAUSEA/VOMITING Last administered on 03/06/19at 02:44; Admin Dose 4 MG; Start 03/04/19 at 21:00 Acetaminophen (Tylenol Tab) 650 mg Q6H PRN PO .PAIN 1-3 OR TEMP Last administered on 03/07/19 03:21; Admin Dose 650 MG; Start 03/04/19 at 21:00 Albuterol/ Ipratropium (Duoneb) 3 ml Q3H RESP THERAPY PRN HHN SHORTNESS OF BREATH Last administered on 03/06/19at 05:38; Admin Dose 3 ML; Start 03/04/19 at 21:00 Piperacillin Sod/ Tazobactam Sod 100 ml @ 200 mls/hr Q6 IVPB Last administered on 03/09/19at 17:26; Admin Dose 200 MLS/HR; Start 03/05/19 at 00:00 Magnesium Hydroxide (Milk Of Mag) 30 ml Q6 PRN PO GASTROINTESTINAL UPSET Last administered on 03/06/19at 03:00; Admin Dose 30 ML; Start 03/06/19 at 03:00 Multivitamins/ Minerals (Theragran-M) 1 tab DAILY PO Last administered on 03/09/19at 09:00; Admin Dose 1 TAB; Start 03/06/19 at 14:30 Prednisone (Prednisone) 20 mg ONCE ONCE PO ; Start 03/10/19 at 09:00; Stop 03/10/19 at 09:01 Prednisone (Prednisone) 10 mg ONCE ONCE PO ; Start 03/11/19 at 09:00; Stop 03/11/19 at 09:01 Heparin Sodium (Porcine) (Heparin (5000 Units/1ml)) 5,000 unit BID SC Last administered on 03/09/19at 09:08; Admin Dose 5,000 UNIT; Start 03/09/19 at 09:00 Tamsulosin HCl (Flomax) 0.4 mg HS PO ; Start 03/09/19 at 21:00 ANDREE COHEN MD Mar 09, 2019 19:13
[2019-03-09 20:00] VITALS: PULSE 89
[2019-03-09 20:10] VITALS: BP 110/84; PULSE 89; RESP 18
[2019-03-09] MEDS ORDERED: TAMSULOSIN (SR) 0.4 MG CAP PO SCH (21:00)
[2019-03-10] MEDS: PIPER-TAZO 3.375 GM IV (PMX) 100 ML IVPB SCH ×4 (00:19→18:05)
[2019-03-10 02:17] VITALS: BP 130/83; PULSE 88; RESP 18
[2019-03-10 07:45] VITALS: BP 107/76; PULSE 88; RESP 20
[2019-03-10] MEDS ORDERED: predniSONE 20 MG TAB PO ONE (09:00)
[2019-03-10] MEDS: MULTIVITAMINS/MINERALS TAB PO SCH (09:08)
[2019-03-10] MEDS: HEPARIN 5,000 UNIT/1 ML VIAL SC SCH ×2 (09:11→20:26)
--- NOTE | 2019-03-10 12:30 | PN ---
Date/Time of Note Date/Time of Note DATE: 03/10/19 TIME: 12:28 Assessment/Plan VTE Prophylaxis Risk score (from Ns)>0 risk: 2 SCD applied (from Ns): Yes Pharmacological prophylaxis: heparin Lines/Catheters IV Catheter Type (from Nrs): Peripheral IV Assessment/Plan Problems: (1) Bullous emphysema Status: Chronic Comment: Is on treatment for this with steroids and can add in the inhalers. Please note that he probably has some chronic infectious issues however pulmonary has in their notes indicated their desire about how aggressively to work this up. Placement into some type of facility under hospice care based on the overall picture is appropriate (2) Cavitary lesion of lung Status: Chronic Comment: These are bilateral and appear to be chronic in nature. Defer to pulmonary regarding management (3) Bladder calculi Status: Chronic Comment: Please note that there may actually also be a bladder tumor here, please see the notes from urology. We will try and do our best to assist (4) Grade I diastolic dysfunction Status: Chronic Comment: Noted. (5) Protein-calorie malnutrition, severe Status: Chronic Comment: Noted. Attempting to give him nutrition Result Diagram: 03/10/19 0554 03/10/19 0554 Results 24hrs Laboratory Tests Test 03/09/19 14:52 03/09/19 17:00 03/10/19 05:54 Prostate Specific Antigen 2.2 Urine Color YELLOW Urine Clarity SLIGHTLY CLOUDY A Urine pH 7.0 Urine Specific [place] 1.019 Urine Ketones NEGATIVE Urine Nitrite NEGATIVE Urine Bilirubin NEGATIVE Urine Urobilinogen NEGATIVE Urine Leukocyte Esterase NEGATIVE Urine Microscopic RBC 1 Urine Microscopic WBC 9 H Urine Calcium Oxalate Crystals FEW A Urine Hemoglobin NEGATIVE Urine Glucose NEGATIVE Urine Total Protein NEGATIVE White Blood Count 7.0 # Red Blood Count 3.39 L Hemoglobin 9.9 L Hematocrit 31.5 L Mean Corpuscular Volume 92.9 Mean Corpuscular Hemoglobin 29.2 Mean Corpuscular 31.4 L Hemoglobin Concent Red Cell Distribution Width 14.8 H Platelet Count 246 Mean Platelet Volume 9.2 Immature Granulocytes % 0.600 H Neutrophils % 75.5 Lymphocytes % 14.4 L Monocytes % 9.1 Eosinophils % 0.3 Basophils % 0.1 Nucleated Red Blood Cells % 0.0 Immature Granulocytes # 0.040 H Neutrophils # 5.3 Lymphocytes # 1.0 Monocytes # 0.6 Eosinophils # 0.0 Basophils # 0.0 Nucleated Red Blood Cells # 0.0 Sodium Level 141 Potassium Level 3.9 Chloride Level 102 Carbon Dioxide Level 38 H Anion Gap 1 L Blood Urea Nitrogen 20 Creatinine 0.52 L Est Glomerular Filtrat > 60 Rate mL/min Glucose Level 81 Calcium Level 8.8 Magnesium Level 2.1 Subjective 24 Hr Interval Summary Free Text/Dictation Pleasant man laying in bed. Reports he is doing well Constitutional: no complaints (Fevers chills or sweats) Respiratory: no complaints (He denies any breathing difficulties) Cardiovascular: no complaints Gastrointestinal: no complaints Genitourinary: other (Planes of inability to urinate) Exam/Review of Systems Exam Vitals Vital Signs Date Temp Pulse Resp B/P (MAP) Pulse Ox O2 O2 Flow FiO2 Time Delivery Rate 03/10/19 Nasal 2.0 07:48 Cannula 03/10/19 98.0 88 20 107/76 98 07:45 (86) Intake and Output 03/09/19 03/09/19 03/10/19 1515:00 23:00 07:00 IntakeIntake Total 500 ml 840 ml 400 ml OutputOutput Total 1 ml 700 ml BalanceBalance 500 ml 839 ml -300 ml Constitutional: alert, oriented, other (Underweight) Respiratory: diminished breath sounds Cardiovascular: regular rate and rhythm, nl pulses, other (MIs medially and caudally displaced) Results Results 24hrs Laboratory Tests Test 03/09/19 14:52 03/09/19 17:00 03/10/19 05:54 Prostate Specific Antigen 2.2 Urine Color YELLOW Urine Clarity SLIGHTLY CLOUDY A Urine pH 7.0 Urine Specific [place] 1.019 Urine Ketones NEGATIVE Urine Nitrite NEGATIVE Urine Bilirubin NEGATIVE Urine Urobilinogen NEGATIVE Urine Leukocyte Esterase NEGATIVE Urine Microscopic RBC 1 Urine Microscopic WBC 9 H Urine Calcium Oxalate Crystals FEW A Urine Hemoglobin NEGATIVE Urine Glucose NEGATIVE Urine Total Protein NEGATIVE White Blood Count 7.0 # Red Blood Count 3.39 L Hemoglobin 9.9 L Hematocrit 31.5 L Mean Corpuscular Volume 92.9 Mean Corpuscular Hemoglobin 29.2 Mean Corpuscular 31.4 L Hemoglobin Concent Red Cell Distribution Width 14.8 H Platelet Count 246 Mean Platelet Volume 9.2 Immature Granulocytes % 0.600 H Neutrophils % 75.5 Lymphocytes % 14.4 L Monocytes % 9.1 Eosinophils % 0.3 Basophils % 0.1 Nucleated Red Blood Cells % 0.0 Immature Granulocytes # 0.040 H Neutrophils # 5.3 Lymphocytes # 1.0 Monocytes # 0.6 Eosinophils # 0.0 Basophils # 0.0 Nucleated Red Blood Cells # 0.0 Sodium Level 141 Potassium Level 3.9 Chloride Level 102 Carbon Dioxide Level 38 H Anion Gap 1 L Blood Urea Nitrogen 20 Creatinine 0.52 L Est Glomerular Filtrat > 60 Rate mL/min Glucose Level 81 Calcium Level 8.8 Magnesium Level 2.1 Medications Medication Current Medications IV Flush (NS 3 ml) 3 ml PER PROTOCOL IV ; Start 03/04/19 at 21:00 Ondansetron HCl (Zofran Inj) 4 mg Q6H PRN IV NAUSEA/VOMITING Last administered on 03/06/19 02:44; Admin Dose 4 MG; Start 03/04/19 at 21:00 Acetaminophen (Tylenol Tab) 650 mg Q6H PRN PO .PAIN 1-3 OR TEMP Last administered on 03/07/19 03:21; Admin Dose 650 MG; Start 03/04/19 at 21:00 Albuterol/ Ipratropium (Duoneb) 3 ml Q3H RESP THERAPY PRN HHN SHORTNESS OF BREATH Last administered on 03/06/19 05:38; Admin Dose 3 ML; Start 03/04/19 at 21:00 Piperacillin Sod/ Tazobactam Sod 100 ml @ 200 mls/hr Q6 IVPB Last administered on 03/10/19 12:23; Admin Dose 200 MLS/HR; Start 03/05/19 at 00:00 Magnesium Hydroxide (Milk Of Mag) 30 ml Q6 PRN PO GASTROINTESTINAL UPSET Last administered on 03/06/19 03:00; Admin Dose 30 ML; Start 03/06/19 at 03:00 Multivitamins/ Minerals (Theragran-M) 1 tab DAILY PO Last administered on 03/10/19 09:08; Admin Dose 1 TAB; Start 03/06/19 at 14:30 Prednisone (Prednisone) 10 mg ONCE ONCE PO ; Start 03/11/19 at 09:00; Stop 03/11/19 at 09:01 Heparin Sodium (Porcine) (Heparin (5000 Units/1ml)) 5,000 unit BID SC Last administered on 03/10/19 09:11; Admin Dose 5,000 UNIT; Start 03/09/19 at 09:00 Tiotropium Junior (Spiriva) 1 inh DAILY INH ; Start 03/10/19 at 12:30; Status UNV Fluticasone/ Vilanterol (Breo Ellipta 100-25 Mcg Inh) 1 inh DAILY INH ; Start 03/10/19 at 12:30; Status UNV Tamsulosin HCl (Flomax) 0.4 mg BID PO ; Start 03/10/19 at 21:00; Status UNV LESLEY ARMENTA MD Mar 10, 2019 12:30
[2019-03-10] MEDS: FLUTICASONE/VILANTEROL 100-25 INH SCH (14:05)
[2019-03-10] MEDS: TIOTROPIUM 18 MCG CAPSULE INHA DEV INH SCH (14:05)
[2019-03-10 14:23] VITALS: BP 98/66; PULSE 64; RESP 20
--- NOTE | 2019-03-10 16:00 | CONS ---
Consult Date/Type/Reason Admit Date/Time Mar 04, 2019 at 20:59 Initial Consult Date 03/09/19 Type of Consultation: Urology Reason for Consultation Debris inside the bladder and bladder stones? Requesting Provider: ISRAEL MARQUIS Date/Time of Note DATE: 03/10/19 TIME: 15:57 Subjective Patient is comfortable. He states he had good night sleep Objective Vitals Vital Signs Date Temp Pulse Resp B/P (MAP) Pulse Ox O2 O2 Flow FiO2 Time Delivery Rate 03/10/19 97.9 64 20 98/66 (77) 97 14:23 03/10/19 Nasal 2.0 07:48 Cannula Intake and Output 03/09/19 03/09/19 03/10/19 1515:00 23:00 07:00 IntakeIntake Total 500 ml 840 ml 400 ml OutputOutput Total 1 ml 700 ml BalanceBalance 500 ml 839 ml -300 ml Exam Paul catheter is draining clear urine. Results/Medications Result Diagram: 03/10/19 0554 03/10/19 0554 Results 24 hrs Laboratory Tests Test 03/09/19 17:00 03/10/19 05:54 Urine Color YELLOW Urine Clarity SLIGHTLY CLOUDY A Urine pH 7.0 Urine Specific Whitney 1.019 Urine Ketones NEGATIVE Urine Nitrite NEGATIVE Urine Bilirubin NEGATIVE Urine Urobilinogen NEGATIVE Urine Leukocyte Esterase NEGATIVE Urine Microscopic RBC 1 Urine Microscopic WBC 9 H Urine Calcium Oxalate Crystals FEW A Urine Hemoglobin NEGATIVE Urine Glucose NEGATIVE Urine Total Protein NEGATIVE White Blood Count 7.0 # Red Blood Count 3.39 L Hemoglobin 9.9 L Hematocrit 31.5 L Mean Corpuscular Volume 92.9 Mean Corpuscular Hemoglobin 29.2 Mean Corpuscular Hemoglobin Concent 31.4 L Red Cell Distribution Width 14.8 H Platelet Count 246 Mean Platelet Volume 9.2 Immature Granulocytes % 0.600 H Neutrophils % 75.5 Lymphocytes % 14.4 L Monocytes % 9.1 Eosinophils % 0.3 Basophils % 0.1 Nucleated Red Blood Cells % 0.0 Immature Granulocytes # 0.040 H Neutrophils # 5.3 Lymphocytes # 1.0 Monocytes # 0.6 Eosinophils # 0.0 Basophils # 0.0 Nucleated Red Blood Cells # 0.0 Sodium Level 141 Potassium Level 3.9 Chloride Level 102 Carbon Dioxide Level 38 H Anion Gap 1 L Blood Urea Nitrogen 20 Creatinine 0.52 L Est Glomerular Filtrat Rate mL/min > 60 Glucose Level 81 Calcium Level 8.8 Magnesium Level 2.1 Home Meds Reported Medications [Ascorbic Acid] No Conflict Check, 1 TAB PO 03/04/19 [Lisinopril] No Conflict Check, 1 TAB PO 03/04/19 [Digoxin] No Conflict Check, 1 TAB PO 03/04/19 [Albuterol] No Conflict Check, INH NEEDED 03/04/19 Medications Current Medications IV Flush (NS 3 ml) 3 ml PER PROTOCOL IV ; Start 03/04/19 at 21:00 Ondansetron HCl (Zofran Inj) 4 mg Q6H PRN IV NAUSEA/VOMITING Last administered on 03/06/19at 02:44; Admin Dose 4 MG; Start 03/04/19 at 21:00 Acetaminophen (Tylenol Tab) 650 mg Q6H PRN PO .PAIN 1-3 OR TEMP Last administered on 03/07/19 03:21; Admin Dose 650 MG; Start 03/04/19 at 21:00 Albuterol/ Ipratropium (Duoneb) 3 ml Q3H RESP THERAPY PRN HHN SHORTNESS OF BREATH Last administered on 03/06/19at 05:38; Admin Dose 3 ML; Start 03/04/19 at 21:00 Piperacillin Sod/ Tazobactam Sod 100 ml @ 200 mls/hr Q6 IVPB Last administered on 03/10/19 12:23; Admin Dose 200 MLS/HR; Start 03/05/19 at 00:00 Magnesium Hydroxide (Milk Of Mag) 30 ml Q6 PRN PO GASTROINTESTINAL UPSET Last administered on 03/06/19at 03:00; Admin Dose 30 ML; Start 03/06/19 at 03:00 Multivitamins/ Minerals (Theragran-M) 1 tab DAILY PO Last administered on 03/10/19 09:08; Admin Dose 1 TAB; Start 03/06/19 at 14:30 Prednisone (Prednisone) 10 mg ONCE ONCE PO ; Start 03/11/19 at 09:00; Stop 03/11/19 at 09:01 Heparin Sodium (Porcine) (Heparin (5000 Units/1ml)) 5,000 unit BID SC Last administered on 03/10/19 09:11; Admin Dose 5,000 UNIT; Start 03/09/19 at 09:00 Tiotropium [place] (Spiriva) 1 inh DAILY INH Last administered on 03/10/19at 14: 05; Admin Dose 1 INH; Start 03/10/19 at 14:00 Fluticasone/ Vilanterol (Breo Ellipta 100-25 Mcg Inh) 1 inh DAILY INH Last administered on 03/10/19at 14:05; Admin Dose 1 INH; Start 03/10/19 at 14:00 Tamsulosin HCl (Flomax) 0.4 mg BID PO ; Start 03/10/19 at 21:00 Assessment/Plan Hospital Course (Demo Recall) Mr. Dodson is a 68 yo man with history of COPD on home oxygen who presented to the ED from board and care in acute respiratory distress. He reports feeling progressive shortness of breath and wheezing. He reports 20 lbs weight loss over the past 3-4 months. Appetite is variable, on days he is very hungry he tries to drink lots of Ensure. He says he was diagnosed with a bacterial infection of the lung and was placed on antibiotics for 6-9 months. He started this regimen 2 months ago. He follows Dr. Sintia Gramajo at [facility]. Typically uses 2-3L oxygen at home. Also he reports having Paul for 2 months when he was at [facility] due to urinary obstruction but it was removed recently. Initially he was voiding well but for 2 days he reports no urine output despite drinking plenty of fluids. He states that he urinates small amount. He denies any history of gross hematuria. He underwent a renal ultrasound and that showed: Right nephrolithiasis. No evidence of hydronephrosis. Moderate amount of layering debris and possible stones within the urinary bladder. CT scan of the chest: 1. Large cavitary mass within the left upper lobe with thickened rodgers and irregular nodular borders measuring 8.7 cm and large right upper lobe cavitary mass measuring up to 8.2 cm. Additional 4.5 cm located within the superior segment of the left lower lobe measure up to 4.5 cm. Suspect sequela of underlying infection such as tuberculosis. Correlate with clinical findings and history. 2. Severe bilateral emphysematous changes and 1.6 cm cavitary lesion within right upper lobe with architectural distortion and adjacent interstitial thickening. There is right middle lobe cystic and traction bronchiectasis. Findings are likely sequela of scarring and pleural of prior infection such as tuberculosis. 3. Numerous pulmonary nodules scattered throughout both lungs, predominately within the lung bases. Findings are probably related to history of prior infection/TB. 4. Underlying malignancy is not excluded. 5. 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 Upon reviewing the ultrasound of the bladder he may well have a mass in the right side of the bladder and that could be a bladder tumor with possible calcification on it. He used to be a smoker and he has lesions in the lungs wh ich also could be metastatic. Even though on the ultrasound it is reported as debris however I inserted a 16 [place] Paul catheter for him and the urine came out very clear. There was no sediment or pus or even blood. Urine was sent for culture and sensitivity as well as for cytology. I ordered a CT scan of the abdomen and pelvis without contrast. We will clamp the Paul catheter 3 hours before to allow the bladder to be full so if there is any mass inside the bladder it would be seen on the CT scan. ANDREE COHEN MD Mar 10, 2019 16:00
[2019-03-10 20:12] VITALS: BP 112/73; PULSE 88; RESP 20
[2019-03-10] MEDS: TAMSULOSIN (SR) 0.4 MG CAP PO SCH (20:24)
[2019-03-11] MEDS: PIPER-TAZO 3.375 GM IV (PMX) 100 ML IVPB SCH ×5 (00:13→23:28)
[2019-03-11 02:29] VITALS: BP 126/79; PULSE 77; RESP 20
[2019-03-11] MEDS: MULTIVITAMINS/MINERALS TAB PO SCH (08:25)
[2019-03-11] MEDS: FLUTICASONE/VILANTEROL 100-25 INH SCH (08:26)
[2019-03-11] MEDS: TAMSULOSIN (SR) 0.4 MG CAP PO SCH ×2 (08:26→21:08)
[2019-03-11] MEDS: TIOTROPIUM 18 MCG CAPSULE INHA DEV INH SCH (08:26)
[2019-03-11] MEDS: HEPARIN 5,000 UNIT/1 ML VIAL SC SCH ×2 (08:31→21:09)
[2019-03-11 08:34] VITALS: BP 121/78; PULSE 78; RESP 19
[2019-03-11] MEDS ORDERED: predniSONE 10 MG TAB PO ONE (09:00)
--- NOTE | 2019-03-11 12:49 | PN ---
Date/Time of Note Date/Time of Note DATE: 03/11/19 TIME: 12:46 Assessment/Plan VTE Prophylaxis Risk score (from Ns)>0 risk: 2 SCD applied (from Ns): Yes Pharmacological prophylaxis: heparin Lines/Catheters IV [facility]from [facility] Saline Lock Urinary Cath still in place: Yes Reason Cath still needed: urinary retention Assessment/Plan Problems: (1) Bullous emphysema Status: Chronic Comment: Noted and on medical therapy for this. Discharge planning (2) Cavitary lesion of lung Status: Chronic Comment: Noted. It is awfully tempting to consider using presumptive treatment as an anti-TB medications in the setting, however defer off to pulmonary community resource consultant expertise (3) Bladder calculi Status: Chronic Comment: As per Dr. Torres. (4) T12 compression fracture Status: Chronic Comment: Noted. This is osteoporosis and is a consequence of his severe protein calorie malnutrition Qualifiers: Encounter type: subsequent encounter Fracture healing: with routine hea ling Qualified Codes: S22.080D - Wedge compression fracture of t11-T12 verteb ra, subsequent encounter for fracture with routine healing (5) Grade I diastolic dysfunction Status: Chronic Comment: Noted and stable (6) Protein-calorie malnutrition, severe Status: Chronic Comment: Noted. Attempt to re-feed him carefully (7) Anemia Status: Chronic Comment: Noted. Qualifiers: Anemia type: unspecified type Qualified Codes: D64.9 - Anemia, unspecified Result Diagram: 03/10/19 0554 03/10/19 0554 Subjective 24 Hr Interval Summary Free Text/Dictation Patient reports he is doing relatively well today. Constitutional: no complaints (No fevers chills or sweats) Respiratory: no complaints Cardiovascular: no complaints Gastrointestinal: no complaints Exam/Review of Systems Exam Vitals Vital Signs Date Temp Pulse Resp B/P (MAP) Pulse Ox O2 O2 Flow FiO2 Time Delivery Rate 03/11/19 97.8 78 19 121/78 99 08:34 (92) 03/11/19 Nasal 2.0 08:00 Cannula Intake and Output 03/10/19 03/10/19 03/11/19 1515:00 23:00 07:00 IntakeIntake Total 1440 ml 100 ml 500 ml OutputOutput Total 400 ml 800 ml BalanceBalance 1040 ml 100 ml -300 ml Constitutional: alert, oriented Respiratory: diminished breath sounds Cardiovascular: regular rate and rhythm, nl pulses Gastrointestinal: soft, nl liver, spleen, non-tender Medications Medication Current Medications IV Flush (NS 3 ml) 3 ml PER PROTOCOL IV ; Start 03/04/19 at 21:00 Ondansetron HCl (Zofran Inj) 4 mg Q6H PRN IV NAUSEA/VOMITING Last administered on 03/06/19 02:44; Admin Dose 4 MG; Start 03/04/19 at 21:00 Acetaminophen (Tylenol Tab) 650 mg Q6H PRN PO .PAIN 1-3 OR TEMP Last administered on 03/07/19 03:21; Admin Dose 650 MG; Start 03/04/19 at 21:00 Albuterol/ Ipratropium (Duoneb) 3 ml Q3H RESP THERAPY PRN HHN SHORTNESS OF SERGEY ATH Last administered on 03/06/19 05:38; Admin Dose 3 ML; Start 03/04/19 at 21:00 Piperacillin Sod/ Tazobactam Sod 100 ml @ 200 mls/hr Q6 IVPB Last administered on 03/11/19 11:36; Admin Dose 200 MLS/HR; Start 03/05/19 at 00:00 Magnesium Hydroxide (Milk Of Mag) 30 ml Q6 PRN PO GASTROINTESTINAL UPSET Last administered on 03/06/19 03:00; Admin Dose 30 ML; Start 03/06/19 at 03:00 Multivitamins/ Minerals (Theragran-M) 1 tab DAILY PO Last administered on 03/11/19 08:25; Admin Dose 1 TAB; Start 03/06/19 at 14:30 Heparin Sodium (Porcine) (Heparin (5000 Units/1ml)) 5,000 unit BID SC Last administered on 03/11/19 08:31; Admin Dose 5,000 UNIT; Start 03/09/19 at 09:00 Tiotropium [place] (Spiriva) 1 inh DAILY INH Last administered on 03/11/19 08:26; Admin Dose 1 INH; Start 03/10/19 at 14:00 Fluticasone/ Vilanterol (Breo Ellipta 100-25 Mcg Inh) 1 inh DAILY INH Last administered on 03/11/19 08:26; Admin Dose 1 INH; Start 03/10/19 at 14:00 Tamsulosin HCl (Flomax) 0.4 mg BID PO Last administered on 03/11/19at 08:26; Admin Dose 0.4 MG; Start 03/10/19 at 21:00 LESLEY ARMENTA MD Mar 11, 2019 12:49
[2019-03-11 15:01] VITALS: BP 102/62; PULSE 99; RESP 20
[2019-03-11 19:51] VITALS: BP 116/65; PULSE 68; RESP 18
[2019-03-12 01:29] VITALS: BP 117/66; PULSE 81; RESP 18
[2019-03-12] MEDS: PIPER-TAZO 3.375 GM IV (PMX) 100 ML IVPB SCH ×2 (05:44→12:17)
[2019-03-12 08:07] VITALS: BP 116/69; PULSE 94; RESP 20
[2019-03-12] MEDS: MULTIVITAMINS/MINERALS TAB PO SCH (08:55)
[2019-03-12] MEDS: TAMSULOSIN (SR) 0.4 MG CAP PO SCH ×2 (08:55→21:12)
[2019-03-12] MEDS: FLUTICASONE/VILANTEROL 100-25 INH SCH (08:56)
[2019-03-12] MEDS: TIOTROPIUM 18 MCG CAPSULE INHA DEV INH SCH (08:57)
[2019-03-12] MEDS: HEPARIN 5,000 UNIT/1 ML VIAL SC SCH ×2 (08:59→21:14)
[2019-03-12 13:57] VITALS: BP 104/66; PULSE 112; RESP 20
--- NOTE | 2019-03-12 15:13 | PN ---
Date/Time of Note Date/Time of Note DATE: 03/12/19 TIME: 15:13 Assessment/Plan VTE Prophylaxis Risk score (from Nsg)>0 risk: 2 SCD applied (from Nsg): Yes Pharmacological prophylaxis: heparin Lines/Catheters IV Catheter Type (from Nrsg): Peripheral IV Urinary Cath still in place: Yes Reason Cath still needed: urinary retention Assessment/Plan Hospital Course SUBJECTIVE: Remains on low-flow oxygen. Denies any pain. OBJECTIVE: Physical Exam General: Thin, frail looking, 68 year-old male lying in bed in mild to moderate distress. HEENT: Normocephalic, atraumatic. Eyes: Anicteric sclerae, conjunctivae clear. ENT: Nasal septum midline, oral mucosa moist. Neck supple, no JVD noticed. Respiratory: Bilaterally clear breath sounds. Use of accessory muscles of respiration. No adventitious breath sounds. Cardiovascular: S1, S2 heard. Regular rate and rhythm. Abdomen: Soft, nontender, and nondistended. Bowel sounds positive in all 4 quad rants. Genitourinary: Deferred. Extremities: No cyanosis, no clubbing, no edema. Peripheral pulses palpable. Neurologic: Cranial nerves II through XII grossly intact. The patient is awake, alert, and oriented. Skin: Normal skin turgor. No skin rashes. Labs & Vitals per chart ASSESSMENT & PLAN 68-year-old male with comorbidities including COPD on home oxygen, remote history of PTB, and significant protein calorie malnutrition who came to the emergency room with chief complaint of dyspnea was admitted to inpatient setting for further treatment and evaluation. 1. Acute on chronic respiratory failure. Continue supplemental oxygen. Continue inhaled bronchodilators SAB, LABA, and inhaled anticholinergics. Being followed by pulmonology. 2. Large cavitary mass within the left upper lobe and large right upper lobe cavitary mass. Status post evaluation by pulmonology. No need for any further work-up for active TB. 3. COPD exacerbation. Status post steroid taper. Continue inhaled bronchodilators. Continue supplemental oxygen. 4. Significant protein calorie malnutrition with underlying cachexia. Continue dietary supplements. 5. Normocytic, normochromic anemia. Most probably anemia of chronic disease. Monitor H&H closely. 6. Pulmonary hypertension. Estimated right ventricular systolic pressure 43 mmHg. Most probably secondary to underlying chronic hypoxia. Continue supplemental oxygen. 7. Urinary retention. Status post evaluation by urology. Improved status post Paul catheter placement. 8. Fluids, electrolytes, and nutrition. Regular diet. 9. DVT prophylaxis. Subcutaneous heparin. 10. Plan. DC ABX. The patient is a cachectic, significantly, malnourished individual who is dependent on oxygen and unable to take care of himself. He is more or less bedridden. He has no evidence of any active TB at this time. He also does not have the financial support to take care of himself in his previous living situation. Therefore, the best option for this patient will be to be discharged to a facility on hospice. The patient was seen in collaboration with Dr. Pond. Result Diagram: 03/12/1952403/12/19524 Results 24hrs Laboratory Tests Test 03/12/19 05:25 White Blood Count 7.3 Red Blood Count 3.20 L Hemoglobin 9.4 L Hematocrit 30.1 L Mean Corpuscular Volume 94.1 Mean Corpuscular Hemoglobin 29.4 Mean Corpuscular Hemoglobin Concent 31.2 L Red Cell Distribution Width 15.7 H Platelet Count 248 Mean Platelet Volume 9.4 Immature Granulocytes % 1.100 H Neutrophils % 75.3 Lymphocytes % 12.6 L Monocytes % 8.7 Eosinophils % 2.2 Basophils % 0.1 Nucleated Red Blood Cells % 0.0 Immature Granulocytes # 0.080 H Neutrophils # 5.5 Lymphocytes # 0.9 Monocytes # 0.6 Eosinophils # 0.2 Basophils # 0.0 Nucleated Red Blood Cells # 0.0 Sodium Level 140 Potassium Level 4.1 Chloride Level 104 Carbon Dioxide Level 34 H Anion Gap 2 L Blood Urea Nitrogen 16 Creatinine 0.44 L Est Glomerular Filtrat Rate mL/min > 60 Glucose Level 80 Calcium Level 8.6 Exam/Review of Systems Exam Vitals Vital Signs Date Temp Pulse Resp B/P (MAP) Pulse Ox O2 O2 Flow FiO2 Time Delivery Rate 03/12/19 97.9 112 20 104/66 96 13:57 (79) 03/12/19 Nasal 2.0 08:30 Cannula Intake and Output 03/11/19 03/11/19 03/12/19 1515:00 23:00 07:00 IntakeIntake Total 580 ml 340 ml 440 ml OutputOutput Total 850 ml 650 ml BalanceBalance 580 ml -510 ml -210 ml Results Results 24hrs Laboratory Tests Test 03/12/19 05:25 White Blood Count 7.3 Red Blood Count 3.20 L Hemoglobin 9.4 L Hematocrit 30.1 L Mean Corpuscular Volume 94.1 Mean Corpuscular Hemoglobin 29.4 Mean Corpuscular Hemoglobin Concent 31.2 L Red Cell Distribution Width 15.7 H Platelet Count 248 Mean Platelet Volume 9.4 Immature Granulocytes % 1.100 H Neutrophils % 75.3 Lymphocytes % 12.6 L Monocytes % 8.7 Eosinophils % 2.2 Basophils % 0.1 Nucleated Red Blood Cells % 0.0 Immature Granulocytes # 0.080 H Neutrophils # 5.5 Lymphocytes # 0.9 Monocytes # 0.6 Eosinophils # 0.2 Basophils # 0.0 Nucleated Red Blood Cells # 0.0 Sodium Level 140 Potassium Level 4.1 Chloride Level 104 Carbon Dioxide Level 34 H Anion Gap 2 L Blood Urea Nitrogen 16 Creatinine 0.44 L Est Glomerular Filtrat Rate mL/min > 60 Glucose Level 80 Calcium Level 8.6 Medications Medication Current Medications IV Flush (NS 3 ml) 3 ml PER PROTOCOL IV ; Start 03/04/19 at 21:00 Ondansetron HCl (Zofran Inj) 4 mg Q6H PRN IV NAUSEA/VOMITING Last administered on 03/06/19at 02:44; Admin Dose 4 MG; Start 03/04/19 at 21:00 Acetaminophen (Tylenol Tab) 650 mg Q6H PRN PO .PAIN 1-3 OR TEMP Last administered on 03/07/19at 03:21; Admin Dose 650 MG; Start 03/04/19 at 21:00 Albuterol/ Ipratropium (Duoneb) 3 ml Q3H RESP THERAPY PRN HHN SHORTNESS OF BREATH Last administered on 03/06/19at 05:38; Admin Dose 3 ML; Start 03/04/19 at 21:00 Piperacillin Sod/ Tazobactam Sod 100 ml @ 200 mls/hr Q6 IVPB Last administered on 03/12/19at 12:17; Admin Dose 200 MLS/HR; Start 03/05/19 at 00:00 Magnesium Hydroxide (Milk Of Mag) 30 ml Q6 PRN PO GASTROINTESTINAL UPSET Last administered on 03/06/19at 03:00; Admin Dose 30 ML; Start 03/06/19 at 03:00 Multivitamins/ Minerals (Theragran-M) 1 tab DAILY PO Last administered on 03/12/19 08:55; Admin Dose 1 TAB; Start 03/06/19 at 14:30 Heparin Sodium (Porcine) (Heparin (5000 Units/1ml)) 5,000 unit BID SC Last adm inistered on 03/12/19 08:59; Admin Dose 5,000 UNIT; Start 03/09/19 at 09:00 Tiotropium [place] (Spiriva) 1 inh DAILY INH Last administered on 03/12/19 08:57; Admin Dose 1 INH; Start 03/10/19 at 14:00 Fluticasone/ Vilanterol (Breo Ellipta 100-25 Mcg Inh) 1 inh DAILY INH Last administered on 03/12/19 08:56; Admin Dose 1 INH; Start 03/10/19 at 14:00 Tamsulosin HCl (Flomax) 0.4 mg BID PO Last administered on 03/12/19 08:55; Admin Dose 0.4 MG; Start 03/10/19 at 21:00 AUBRIE HALEY NP Mar 12, 2019 15:13
[2019-03-12 20:03] VITALS: BP 112/70; PULSE 77; RESP 20
--- NOTE | 2019-03-12 20:18 | CONS ---
Consult Date/Type/Reason Admit Date/Time Mar 04, 2019 at 20:59 Initial Consult Date 03/09/19 Type of Consultation: Urology Reason for Consultation Urinary retention and bladder stones Requesting Provider: ISRAEL MARQUIS Date/Time of Note DATE: 03/12/19 TIME: 20:15 Subjective Patient states that he is feeling better. He denies any abdominal pain Objective Vitals Vital Signs Date Temp Pulse Resp B/P (MAP) Pulse Ox O2 O2 Flow FiO2 Time Delivery Rate 03/12/19 97.9 77 20 112/70 99 20:03 (84) 03/12/19 Nasal 2.0 08:30 Cannula Intake and Output 03/11/19 03/11/19 03/12/19 1515:00 23:00 07:00 IntakeIntake Total 580 ml 340 ml 440 ml OutputOutput Total 850 ml 650 ml BalanceBalance 580 ml -510 ml -210 ml Exam The Paul catheter is draining clear urine Results/Medications Result Diagram: 03/12/19 0525 03/12/19 0525 Results 24 hrs Laboratory Tests Test 03/12/19 05:25 White Blood Count 7.3 Red Blood Count 3.20 L Hemoglobin 9.4 L Hematocrit 30.1 L Mean Corpuscular Volume 94.1 Mean Corpuscular Hemoglobin 29.4 Mean Corpuscular Hemoglobin Concent 31.2 L Red Cell Distribution Width 15.7 H Platelet Count 248 Mean Platelet Volume 9.4 Immature Granulocytes % 1.100 H Neutrophils % 75.3 Lymphocytes % 12.6 L Monocytes % 8.7 Eosinophils % 2.2 Basophils % 0.1 Nucleated Red Blood Cells % 0.0 Immature Granulocytes # 0.080 H Neutrophils # 5.5 Lymphocytes # 0.9 Monocytes # 0.6 Eosinophils # 0.2 Basophils # 0.0 Nucleated Red Blood Cells # 0.0 Sodium Level 140 Potassium Level 4.1 Chloride Level 104 Carbon Dioxide Level 34 H Anion Gap 2 L Blood Urea Nitrogen 16 Creatinine 0.44 L Est Glomerular Filtrat Rate mL/min > 60 Glucose Level 80 Calcium Level 8.6 Home Meds Reported Medications [Ascorbic Acid] No Conflict Check, 1 TAB PO 03/04/19 [Lisinopril] No Conflict Check, 1 TAB PO 03/04/19 [Digoxin] No Conflict Check, 1 TAB PO 03/04/19 [Albuterol] No Conflict Check, INH NEEDED 03/04/19 Medications Current Medications IV Flush (NS 3 ml) 3 ml PER PROTOCOL IV ; Start 03/04/19 at 21:00 Ondansetron HCl (Zofran Inj) 4 mg Q6H PRN IV NAUSEA/VOMITING Last administered on 03/06/19 02:44; Admin Dose 4 MG; Start 03/04/19 at 21:00 Acetaminophen (Tylenol Tab) 650 mg Q6H PRN PO .PAIN 1-3 OR TEMP Last administered on 03/07/19 03:21; Admin Dose 650 MG; Start 03/04/19 at 21:00 Albuterol/ Ipratropium (Duoneb) 3 ml Q3H RESP THERAPY PRN HHN SHORTNESS OF BREATH Last administered on 03/06/19 05:38; Admin Dose 3 ML; Start 03/04/19 at 21:00 Magnesium Hydroxide (Milk Of Mag) 30 ml Q6 PRN PO GASTROINTESTINAL UPSET Last administered on 03/06/19 03:00; Admin Dose 30 ML; Start 03/06/19 at 03:00 Multivitamins/ Minerals (Theragran-M) 1 tab DAILY PO Last administered on 03/12/19 08:55; Admin Dose 1 TAB; Start 03/06/19 at 14:30 Heparin Sodium (Porcine) (Heparin (5000 Units/1ml)) 5,000 unit BID SC Last administered on 03/12/19 08:59; Admin Dose 5,000 UNIT; Start 03/09/19 at 09:00 Tiotropium [place] (Spiriva) 1 inh DAILY INH Last administered on 03/12/19 08:57; Admin Dose 1 INH; Start 03/10/19 at 14:00 Fluticasone/ Vilanterol (Breo Ellipta 100-25 Mcg Inh) 1 inh DAILY INH Last administered on 03/12/19 08:56; Admin Dose 1 INH; Start 03/10/19 at 14:00 Tamsulosin HCl (Flomax) 0.4 mg BID PO Last administered on 03/12/19 08:55; Admin Dose 0.4 MG; Start 03/10/19 at 21:00 Assessment/Plan Hospital Course (Demo Recall) Mr. Dodson is a 68 yo man with history of COPD on home oxygen who presented to the ED from board and care in acute respiratory distress. He reports feeling progressive shortness of breath and wheezing. He reports 20 lbs weight loss over the past 3-4 months. Appetite is variable, on days he is very hungry he tries to drink lots of Ensure. He says he was diagnosed with a bacterial infection of the lung and was placed on antibiotics for 6-9 months. He started this regimen 2 months ago. He follows Dr. Sintia Gramajo at [facility]. Typically uses 2-3L oxygen at home. Also he reports having Paul for 2 months when he was at [facility] due to urinary obstruction but it was removed recently. Initially he was voiding well but for 2 days he reports no urine output despite drinking plenty of fluids. He states that he urinates small amount. He denies any history of gross hematuria. He underwent a renal ultrasound and that showed: Right nephrolithiasis. No evidence of hydronephrosis. Moderate amount of layering debris and possible stones within the urinary bladder. CT scan of the chest: 1. Large cavitary mass within the left upper lobe with thickened rodgers and irregular nodular borders measuring 8.7 cm and large right upper lobe cavitary mass measuring up to 8.2 cm. Additional 4.5 cm located within the superior segment of the left lower lobe measure up to 4.5 cm. Suspect sequela of underlying infection such as tuberculosis. Correlate with clinical findings and history. 2. Severe bilateral emphysematous changes and 1.6 cm cavitary lesion within right upper lobe with architectural distortion and adjacent interstitial thickening. There is right middle lobe cystic and traction bronchiectasis. Findings are likely sequela of scarring and pleural of prior infection such as tuberculosis. 3. Numerous pulmonary nodules scattered throughout both lungs, predominately within the lung bases. Findings are probably related to history of prior infection/TB. 4. Underlying malignancy is not excluded. 5. 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 Patient underwent a CT scan of the abdomen and pelvis after clamping the Paul catheter for about 3 hours to allow the bladder to distend. The CT scan did show bladder stones but there was no evidence of bladder tumor. The patient will need the stones removed as there may be source of infection for him. But we have to do that after he is medically cleared. ANDREE COHEN MD Mar 12, 2019 20:17
[2019-03-13 01:23] VITALS: BP 109/72; PULSE 99; RESP 18
--- NOTE | 2019-03-13 06:01 | PN ---
Assessment/Plan VTE Prophylaxis Risk score (from Ns)>0 risk: 2 Assessment/Plan Result Diagram: 03/13/19 0431 03/12/19 0525 Results 24hrs Laboratory Tests Test 03/13/19 04:31 White Blood Count 8.4 Red Blood Count 3.45 L Hemoglobin 10.0 L Hematocrit 32.1 L Mean Corpuscular Volume 93.0 Mean Corpuscular Hemoglobin 29.0 Mean Corpuscular Hemoglobin Concent 31.2 L Red Cell Distribution Width 16.4 H Platelet Count 270 Mean Platelet Volume 9.9 Immature Granulocytes % 1.600 H Neutrophils % 75.3 Lymphocytes % 11.7 L Monocytes % 8.9 Eosinophils % 2.4 Basophils % 0.1 Nucleated Red Blood Cells % 0.0 Immature Granulocytes # 0.130 H Neutrophils # 6.3 Lymphocytes # 1.0 Monocytes # 0.8 Eosinophils # 0.2 Basophils # 0.0 Nucleated Red Blood Cells # 0.0 Exam/Review of Systems Exam Vitals Medications Medication AUBRIE HALEY NP Mar 13, 2019 06:01
[2019-03-13 08:03] VITALS: BP 108/71; PULSE 98; RESP 20
[2019-03-13] MEDS: MULTIVITAMINS/MINERALS TAB PO SCH (09:47)
[2019-03-13] MEDS: FLUTICASONE/VILANTEROL 100-25 INH SCH (09:47)
[2019-03-13] MEDS: TIOTROPIUM 18 MCG CAPSULE INHA DEV INH SCH (09:47)
[2019-03-13] MEDS: TAMSULOSIN (SR) 0.4 MG CAP PO SCH (09:47)
[2019-03-13] MEDS: HEPARIN 5,000 UNIT/1 ML VIAL SC SCH (09:51)
--- NOTE | 2019-03-13 10:57 | CONS ---
Consultation Date/Type/Reason Admit Date/Time Mar 04, 2019 at 20:59 Initial Consult Date Type of Consult Pulmonary Patient condition is stable. Remains awake and alert. Complains of very minimal cough. Denies any shortness of breath at rest. General exam; elderly male, awake and alert. Having lunch on bed. Currently in no distress. Requesting Provider: ISRAEL MARQUIS Date/Time of Note DATE: 03/13/19 TIME: 10:55 24 HR Interval Summary Free Text/Dictation Patient's condition is stable. Has remained hemodynamically stable. General exam; elderly male, currently no distress. Awake and appropriately responsive. HEENT exam; supple neck, no JVD. No lymphadenopathy. Midline trachea. No thyromegaly. Patient is edentulous. Chest exam; diminished breath sounds bilaterally. S1-S2 audible, no murmurs. Regular rhythm. Abdomen exam; soft, scaphoid. Bowel sounds audible. Nontender. No organomegaly. Extremity exam; no peripheral edema clubbing. RIPRAP PLACER exam; no focal deficit. Patient though exhibiting generalized weakness. Assessment and recommendations; 1. Patient with history of severe end-stage fibrotic lung disease likely due to prior clinical medicine pneumonia admitted for bronchitis with significant interval improvement. 2. History of BPH. Continue current supportive care. Consider discharge. Consider palliative care as well. Exam/Review of Systems Exam Vitals Vital Signs Date Temp Pulse Resp B/P (MAP) Pulse Ox O2 O2 Flow FiO2 Time Delivery Rate 03/13/19 98.0 98 20 108/71 97 08:03 (83) 03/13/19 3.0 01:45 03/12/19 Nasal 20:10 Cannula Intake and Output 03/12/19 03/12/19 03/13/19 1515:00 23:00 07:00 IntakeIntake Total 1460 ml 640 ml 400 ml OutputOutput Total 900 ml 1000 ml BalanceBalance 1460 ml -260 ml -600 ml Results Result Diagram: 03/13/19 0431 03/13/19 0431 Results 24hrs Laboratory Tests Test 03/13/19 04:31 White Blood Count 8.4 Red Blood Count 3.45 L Hemoglobin 10.0 L Hematocrit 32.1 L Mean Corpuscular Volume 93.0 Mean Corpuscular Hemoglobin 29.0 Mean Corpuscular Hemoglobin Concent 31.2 L Red Cell Distribution Width 16.4 H Platelet Count 270 Mean Platelet Volume 9.9 Immature Granulocytes % 1.600 H Neutrophils % 75.3 Lymphocytes % 11.7 L Monocytes % 8.9 Eosinophils % 2.4 Basophils % 0.1 Nucleated Red Blood Cells % 0.0 Immature Granulocytes # 0.130 H Neutrophils # 6.3 Lymphocytes # 1.0 Monocytes # 0.8 Eosinophils # 0.2 Basophils # 0.0 Nucleated Red Blood Cells # 0.0 Sodium Level 139 Potassium Level 4.2 Chloride Level 103 Carbon Dioxide Level 34 H Anion Gap 2 L Blood Urea Nitrogen 16 Creatinine 0.41 L Est Glomerular Filtrat Rate mL/min > 60 Glucose Level 76 Calcium Level 8.7 Phosphorus Level 2.9 Magnesium Level 2.0 Medications Medication Current Medications IV Flush (NS 3 ml) 3 ml PER PROTOCOL IV ; Start 03/04/19 at 21:00 Ondansetron HCl (Zofran Inj) 4 mg Q6H PRN IV NAUSEA/VOMITING Last administered on 03/06/19 02:44; Admin Dose 4 MG; Start 03/04/19 at 21:00 Acetaminophen (Tylenol Tab) 650 mg Q6H PRN PO .PAIN 1-3 OR TEMP Last administered on 03/07/19 03:21; Admin Dose 650 MG; Start 03/04/19 at 21:00 Albuterol/ Ipratropium (Duoneb) 3 ml Q3H RESP THERAPY PRN HHN SHORTNESS OF BREATH Last administered on 03/06/19 05:38; Admin Dose 3 ML; Start 03/04/19 at 21:00 Magnesium Hydroxide (Milk Of Mag) 30 ml Q6 PRN PO GASTROINTESTINAL UPSET Last administered on 03/06/19 03:00; Admin Dose 30 ML; Start 03/06/19 at 03:00 Multivitamins/ Minerals (Theragran-M) 1 tab DAILY PO Last administered on 03/13/19 09:47; Admin Dose 1 TAB; Start 03/06/19 at 14:30 Heparin Sodium (Porcine) (Heparin (5000 Units/1ml)) 5,000 unit BID SC Last administered on 03/13/19 09:51; Admin Dose 5,000 UNIT; Start 03/09/19 at 09:00 Tiotropium [place] (Spiriva) 1 inh DAILY INH Last administered on 03/13/19 09:47; Admin Dose 1 INH; Start 03/10/19 at 14:00 Fluticasone/ Vilanterol (Breo Ellipta 100-25 Mcg Inh) 1 inh DAILY INH Last administered on 03/13/19at 09:47; Admin Dose 1 INH; Start 03/10/19 at 14:00 Tamsulosin HCl (Flomax) 0.4 mg BID PO Last administered on 03/13/19at 09:47; Admin Dose 0.4 MG; Start 03/10/19 at 21:00 MELANIA REYES Mar 13, 2019 10:57
[2019-03-13 14:12] VITALS: BP 110/76; PULSE 113; RESP 20
--- NOTE | 2019-03-13 14:21 | DS ---
Date/Time of Note Date/Time of Note DATE: 03/13/19 TIME: 14:18 Discharge Summary Admission/Discharge Info Admit Date/Time Mar 04, 2019 at 20:59 Discharge Date/Time Discharge Diagnosis 1. Acute on chronic respiratory failure. 2. Large cavitary mass within the left upper lobe and large right upper lobe cavitary mass. 3. COPD exacerbation. 4. Severe protein calorie malnutrition with underlying cachexia. 5. Normocytic, normochromic anemia. 6. Pulmonary hypertension. Right ventricular systolic pressure 43 mmHg. 7. Urinary retention. Patient Condition: Guarded Consults 1. Valeriy Curran MD, Pulmonary. 2. Robert Brothers MD, Pulmonary. 3. David Torres MD, Urology. Procedures 2D Echocardiogram Conclusions: Normal left ventricular systolic function. Normal left ventricular cavity size. Normal left ventricular wall thickness. Ejection fraction is visually estimated at 60 %. Tissue Doppler/Mitral Doppler indices are consistent with impaired relaxation (Stage I diastolic dysfunction). Mild mitral leaflet calcification. Mild mitral annular calcification. No significant aortic stenosis or insufficiency. Aortic cusps appear mildly calcified. Normal appearance of the tricuspid valve. The estimated Peak RVSP is 43 mmHg. There is mild tricuspid regurgitation. Chest CT IMPRESSION: 1. Large cavitary mass within the left upper lobe with thickened rodgers and irregular nodular borders measuring 8.7 cm and large right upper lobe cavitary mass measuring up to 8.2 cm. Additional 4.5 cm located within the superior segment of the left lower lobe measure up to 4.5 cm. Suspect sequela of underlying infection such as tuberculosis. Correlate with clinical findings and history. 2. Severe bilateral emphysematous changes and 1.6 cm cavitary lesion within right upper lobe with architectural distortion and adjacent interstitial thickening. There is right middle lobe cystic and traction bronchiectasis. Findings are likely sequela of scarring and pleural of prior infection such as tuberculosis. 3. Numerous pulmonary nodules scattered throughout both lungs, predominately within the lung bases. Findings are probably related to history of prior infection/TB. 4. Underlying malignancy is not excluded. 5. 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 CT Abdomen & Pelvis IMPRESSION: Nonobstructing right renal calculi. Multiple stones and debris dependent urinary bladder. No bladder or renal mass on limited noncontrast exam. Bibasilar lung fibrosis with bullous disease. Innumerable lung nodules likely representing sequela of old granulomatous disease. Metastatic disease cannot be ruled out. Calcified mesenteric nodes. Severe chronic compression fracture T12. Hx of Present Illness This is a 68-year-old male with comorbidities including COPD on home oxygen, remote history of PTB, and significant protein calorie malnutrition who came to the emergency room with chief complaint of dyspnea and was admitted to inpatient setting for further treatment and evaluation. Hospital Course The patient has chronic respiratory failure secondary to underlying COPD. The patient had evidence of acute on chronic respiratory failure. The patient was maintained on supplemental oxygen. The patient was continued on inhaled bronchodilators SAB, LABA, and inhaled anticholinergics. The patient was being followed by pulmonology. The patient imaging studies also showed a large cavitary mass within the left upper lobe and large right upper lobe cavitary mass. Findings were concerning for active TB. However, after pulmonary evaluation, pulmonary recommended no further work-up for any active TB. Patient was maintained on tapering dose of steroids. The patient was noticed to have significant protein calorie malnutrition with underlying cachexia. The patient was evaluated by dietitian. The patient was maintained on dietary supplements and multivitamins. He was noticed to have normocytic, normochromic anemia. This could be most probably anemia of chronic disease. The patient's H&H remained stable. The patient also had evidence of pulmonary hypertension with a PA systolic pressure 43 mmHg. This could be most probably secondary to his underlying chronic hypoxia. The patient was continued on supplemental oxygen. The patient also had urinary retention and this was evaluated by urology. The patient was started on alpha blockers and the patient had a Paul catheter placed with improvement in the patient's symptoms. The patient is cachetic and significantly malnourished, who is dependent on oxygen and unable to take care of himself. He is more or less bedridden. He has no evidence of any active TB at this time. He also does not have any monetary support to take care of himself or go back to his previous living situation. Therefore, the best option for this patient was considered to be hospice. Therefore, the patient was evaluated by hospice and the patient will be transferred to a facility under hospice care. At this time I would like to thank all the consultants for seeing the patient and providing clinical recommendations. The patient was seen in collaboration with Dr. Pond. Home Meds Discontinued Reported Medications [Ascorbic Acid] No Conflict Check, 1 TAB PO 03/04/19 [Lisinopril] No Conflict Check, 1 TAB PO 03/04/19 [Digoxin] No Conflict Check, 1 TAB PO 03/04/19 [Albuterol] No Conflict Check, INH NEEDED 03/04/19 Follow-up Plan The patient being transferred to [facility] under [facility] hospice. Primary Care Provider Care Physician No Primary Time spent on discharge: > 30 minutes Pending Labs Laboratory Tests Test 03/13/19 04:31 White Blood Count 8.4 10^3/ul (4.8-10.8) Red Blood Count 3.45 10^6/ul (4.70-6.10) Hemoglobin 10.0 g/dl (14.0-18.0) Hematocrit 32.1 % (42.0-52.0) Mean Corpuscular Volume 93.0 fl (82.0-101.0) Mean Corpuscular Hemoglobin 29.0 pg (29.0-33.0) Mean Corpuscular Hemoglobin Concent 31.2 g/dl (32.0-37.0) Red Cell Distribution Width 16.4 % (11.5-14.5) Platelet Count 270 10^3/UL (140-415) Mean Platelet Volume 9.9 fl (7.4-10.4) Immature Granulocytes % 1.600 % (0.001-0.429) Neutrophils % 75.3 % (39.0-77.0) Lymphocytes % 11.7 % (15.0-51.0) Monocytes % 8.9 % (0.0-11.0) Eosinophils % 2.4 % (0.0-7.0) Basophils % 0.1 % (0.0-2.0) Nucleated Red Blood Cells % 0.0 /100WBC (0.0-0.0) Immature Granulocytes # 0.130 10^3/ul (0.0-0.031) Neutrophils # 6.3 10^3/ul (1.6-7.5) Lymphocytes # 1.0 10^3/ul (0.8-2.9) Monocytes # 0.8 10^3/ul (0.3-0.9) Eosinophils # 0.2 10^3/ul (0.0-0.5) Basophils # 0.0 10^3/ul (0.0-0.1) Nucleated Red Blood Cells # 0.0 10^3/ul (0.0-0.0) Sodium Level 139 mmol/L (135-144) Potassium Level 4.2 mmol/L (3.5-5.1) Chloride Level 103 mmol/L (97-110) Carbon Dioxide Level 34 mmol/L (21-31) Anion Gap 2 (5-13) Blood Urea Nitrogen 16 mg/dl (7-20) Creatinine 0.41 mg/dl (0.61-1.24) Est Glomerular Filtrat Rate mL/min > 60 mL/min (>60) Glucose Level 76 mg/dl (70-220) Calcium Level 8.7 mg/dl (8.4-10.2) Phosphorus Level 2.9 mg/dl (2.5-4.9) Magnesium Level 2.0 mg/dl (1.7-2.5) AUBRIE HALEY NP Mar 13, 2019 14:21
== END 2019-03-13 14:40 | disposition hospice, inpatient (51) | DRG 189 ==
LOC: E/R 16:48 → SUATTDRO 19:53 → TEL 20:59 → 2NE 03-06 21:05
PROVIDERS: ADMIT Internal Medicine; ATTEND Family Medicine
DX: J96.21 Acute and chronic respiratory failure with hypoxia (principal); J18.9 Pneumonia, unspecified organism; E43 Unspecified severe protein-calorie malnutrition; Z68.1 Body mass index [BMI] 19.9 or less, adult; R64 Cachexia; J43.9 Emphysema, unspecified; B90.9 Sequelae of respiratory and unspecified tuberculosis; J98.4 Other disorders of lung; R34 Anuria and oliguria; Z87.891 Personal history of nicotine dependence; D50.9 Iron deficiency anemia, unspecified; R00.1 Bradycardia, unspecified; M51.34 Other intervertebral disc degeneration, thoracic region; N21.0 Calculus in bladder; I27.20 Pulmonary hypertension, unspecified; R33.9 Retention of urine, unspecified
CPT/HCPCS: 36415; 71045; 71250; 74176; 76775; 80048; 80053; 80076; 81001; 81003; 82150; 83036; 83540; 83605; 83690; 83735; 83880; 84100; 84153; 84154; 84443; 84484; 85025; 85610; 85730; 87081; 87086; 87400; 88104; 93005; 93306; 94640; 94644; 94664; 96374; 96375; J0692; J1644; J2405; J2543; J2930; J3370; J7030; J7512